=== PATIENT | male | born 1955 | race Caucasian/White ===

== ENCOUNTER 2020-01-09 16:18 | Inpatient (IN) | payer MEDICARE ==
[2020-01-09] MEDS ORDERED: Metoclopramide IV* 5 MG/ML 2 ML VIAL IV ONE (16:20)
--- NOTE | 2020-01-09 16:28 | ED ---
Head Injury - HPI Summary HPI Summary: This patient is a 64 year old M brought to [facility] by EMS with a chief complaint of head pain since today 01/09/20. Symptoms aggravated by nothing. Symptoms alleviated by nothing. 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 Pt reports head pain, abdominal pain, nauseous, no weakness in body, and not on blood thinners. Pt does not know what month but knows the year. Medications reviewed. Allergies noted. - History Of Current Complaint Stated Complaint: HEAD INJURY PER EMS Time Seen by Provider: 01/09/20 16:19 Hx Obtained From: Patient, EMS Onset/Duration: Started Minutes Ago, Started Hours Ago, Still Present Aggravating Factor(s): Other: - nothing Alleviating Factor(s): Other: - nothing Associated Signs And Symptoms: Nausea, Other: - significant laceration, head pain, loss of consciousness, nausea , dry heaving, abdominal pain, no weakness in body - Allergies/Home Medications Allergies/Adverse Reactions: Allergies Allergy/AdvReac Type Severity Reaction Status Date / Time No Known Allergies Allergy Verified 05/30/13 08:56 Home Medications: Home Medications Omeprazole 20 mg PO DAILY 01/09/20 [History Confirmed 01/09/20] Venlafaxine EXT RELEASE CAP* [Effexor Xr CAP*] 75 mg PO DAILY 01/09/20 [History Confirmed 01/09/20] cloNIDine TAB* [Catapres 0.1 MG TAB*] 0.1 mg PO DAILY 01/09/20 [History Confirmed 01/09/20] PMH/Surg Hx/FS Hx/Imm Hx Psychiatric History: Denies: Hx Eating Disorder, Hx of Violent Episodes Against Others - Cancer History Cancer Type, Location and Year: Basal cell carcinoma Rt ear - Social History Substance Use Type: Reports: None Review of Systems Positive: Other - no weakness in body Positive: Abdominal Pain, Nausea, Other - dry heaving Positive: Other - laceration to head Neurological: Other - head pain, Positive: Syncope - loss of consciousness All Other Systems Reviewed And Are Negative: Yes Physical Exam - Summary Physical Exam Summary: Constitutional: Well-developed, Well-nourished, Alert. (-) Distressed Skin: 10 cm laceration to right forehead HENT: Normocephalic; Atraumatic Eyes: Conjunctiva normal Neck: Musculoskeletal ROM normal neck. (-) JVD, (-) Stridor, (-) Tracheal deviation Cardio: Rhythm regular, rate normal, Heart sounds normal; Intact distal pulses; Radial pulses are 2+ and symmetric. (-) Murmur Pulmonary/Chest wall: Effort normal. (-) Respiratory distress, (-) Wheezes, (-) Rales Abd: Soft, (-) tenderness, (-) Distension, (-) Guarding, (-) Rebound Musculoskeletal: (-) Edema Lymph: (-) Cervical adenopathy Neuro: actively retching, not answering most questions due to retching, no obvious neurological deficits on exam but not following exams due to retching Psych: Mood and affect Normal Triage Information Reviewed: Yes Vital Signs Reviewed: Yes Procedures - Sedation Patient Received Moderate/Deep Sedation with Procedure: No - Laceration/Wound Repair 1 Location: head Description: Linear Anesthesia: Local, 1.0% - 10 mL Length, Depth and Shape: 10 cm, gaping, with irregularity at the medial edge Betadine Prep?: No Irrigated w/ Saline (ccs): 500 Laceration/Wound Explored: clean Closure: Multilayer - two 4-0 vicryl and 11 5-0 nylon sutures placed in simple interrupted Suture Type: Nylon, Vicryl Number of Sutures: 13 - 11 5-0 nylon and two 4-0 vicryl deep Layer Closure?: Yes 2 Location: head Diagnostics - Laboratory Result Diagrams: 01/10/20 04:40 01/10/20 08:15 Lab Statement: Any lab studies that have been ordered have been reviewed, and results considered in the medical decision making process. - CT Thoracic Spine CT CT Interpretation Completed By: Radiologist Summary of CT Findings: Per radiologist,. 1. No thoracic spine traumatic abnormalities. 2. Mild multilevel thoracic spondylopathy. ED physician has reviewed this imaging report. Lumbar Spine CT CT Interpretation Completed By: Radiologist Summary of CT Findings: Per radiologist,. 1. No lumbar spine traumatic abnormalities. 2. Mild multilevel lumbar spondylopathy. ED physician has reviewed this imaging report. Head CTA CT Interpretation Completed By: Radiologist Summary of CT Findings: Per radiologist,. 1. Stable left parietal posttraumatic intraparenchymal hemorrhages. No new CAYUGA. intra-or extra- axial hemorrhage. 2. Normal head CTA. ED physician has reviewed this imaging report. Cervical Spine CT CT Interpretation Completed By: Radiologist Summary of CT Findings: Per radiologist,. 1. STRAIGHTENING OF THE CERVICAL SPINE, NO EVIDENCE FOR FRACTURE. 2. MILD TO MODERATE CERVICAL SPONDYLOSIS DESCRIBED. ED physician has reviewed this imaging report. Brain CT CT Interpretation Completed By: Radiologist Summary of CT Findings: Per radiologist,. SMALL TO MODERATE SIZE AREAS OF INTRACRANIAL HEMORRHAGE PRESENT IN THE LEFT. POSTERIOR FRONTAL AND PARIETAL REGION DESCRIBED WITHOUT EVIDENCE FOR MASS EFFECT. ED physician has reviewed this imaging report. Re-Evaluation - Re-Evaluation First Eval Re-Evaluation Time: 19:30 Comment: talking better, mild headache, no vomiting Head Injury Course/Dx Course Of Treatment: Patient is here with atraumatic head injury. Patient was retching and slightly altered upon arrival so a stat CT head was performed which showed a small intraparenchymal hemorrhage. Neurosurgery was called and they wanted patient started on a nicardipine drip for hypertension and Keppra. They evaluated her rash which her with a CTA and was comfortable admitting the patient after that was negative. Patient had his laceration repaired. Patient is admitted to the ICU - Diagnoses Provider Diagnoses: Laceration - Physician Notifications Discussed Care Of Patient With: Thao De Souza - neurosurgery Time Discussed With Above Provider: 16:33 Instructed by Provider To: Other - start nicardipine drip and put him on keppra and he will look at the images; Jo 1727 call hospitalist; Jo 2012 comfortable taking patient after looking at MRI; A [facility] accepts patient for admission - Critical Care Time Critical Care Time: 30-74 min - 60 min Discharge ED - Sign-Out/Discharge Documenting (check all that apply): Patient Departure - admit - Discharge Plan Condition: Stable Disposition: ADMITTED TO [facility] - Billing Disposition and Condition Condition: STABLE Disposition: Admitted to [facility] - Attestation Statements Document Initiated by Scribe: Yes Documenting Scribe: Priya Grimaldo Provider For Whom Scribe is Documenting (Include Credential): Dr. Easton Godinez MD Scribe Attestation: Priya Martínez, scribed for Dr. Easton Godinez MD on 01/12/20 at 0741. Scribe Documentation Reviewed: Yes Provider Attestation: The documentation as recorded by the scribe, Priya Grimaldo accurately reflects the service I personally performed and the decisions made by me, Dr. Easton Godinez MD Status of Scribe Document: Viewed
[2020-01-09 16:32] LABS: ABS Monocytes 0.5 10^3/ul (0-0.8); ABS Neutrophils 3.6 10^3/ul (1.5-7.7); Eosinophil % 0.6 %; Hematocrit 37 % (42-52); Hemoglobin 12.4 g/dL (14.0-18.0); Lymphocyte % 41.8 %; Mean Corpuscular HGB Conc 34 g/dL (31-36); Mean Corpuscular Hemoglobin 31 pg (27-31); Mean Corpuscular Volume 94 fL (80-94); Mean Platelet Volume 7.6 fL (7.4-10.4); Platelet Count 313 10^3/uL (150-450); Red Blood Count 3.93 10^6 /uL (4.18-5.48); Red Cell Distribution Width 15 % (10-15); White Blood Count 7.2 10^3/uL (3.5-10.8)
[2020-01-09] MEDS ORDERED: levETIRAcetam 1000MG IVPREMIX* 1,000 MG/100 ML BAG IVPB ONE (16:34)
[2020-01-09 16:42] LABS: INR 1.08 (0.82-1.09)
[2020-01-09 16:48] LABS: Albumin 4.5 g/dL (3.2-5.2); Albumin/Globulin Ratio 1.5 (1-3); BUN/Creatinine Ratio 21.4 (8-20); Calcium 9.5 mg/dL (8.6-10.3); EGFR African American 75.5 (>60); EGFR Non-African American 62.4 (>60); Total Bilirubin 0.5 mg/dL (0.2-1.0); Total Protein 7.5 g/dL (6.4-8.9)
[2020-01-09] MEDS ORDERED: niCARdipine IV* 25 MG in NS 0.9% 250 ML* 240 ML IVPB SCH (17:00)
[2020-01-09] MEDS ORDERED: KCL 20 MEQ/100 ML IVPREMIX* 20 MEQ/100 ML BAG IV ONE (17:07)
[2020-01-09] MEDS ORDERED: Iohexol 350* (CONTRAST) 500 ML MDV IV ONE (17:42)
[2020-01-09] MEDS ORDERED: Lidocaine 1% MPF ** 5 ML VIAL INJ ONE (19:38)
[2020-01-09 21:05] LABS: Magnesium 1.9 mg/dL (1.9-2.7)
[2020-01-09] MEDS ORDERED: NS 0.9% 1000 ML** 1,000 ML IV SCH (21:30)
--- NOTE | 2020-01-09 23:51 | CONS ---
AMENDED REPORT NOW INCLUDES DATE OF CONSULT CONSULTATION NOTE: DATE OF CONSULT: 01/09/20 HISTORY OF PRESENT ILLNESS: The patient is a very pleasant 64-year-old gentleman who was brought to the emergency room by EMS with complaints of head pain. The patient was reported that he had sustained a closed head injury. 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 The patient had loss of consciousness. He denies any seizures, but he does have nausea and he vomited in the emergency room. The patient admits that he has weakness on the right upper and lower extremity. He denies numbness or tingling. He reports that he had no urinary or GI incontinence. He denies any neck or back pain. The patient is retired. 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 He is single. He has one child. He is accommodated by his brother. The patient was in the emergency room at the request of emergency room team because of CT scan findings consistent with left frontal intracranial hemorrhage. PAST MEDICAL HISTORY: Negative. PAST SURGICAL HISTORY: Hernia repair, skin lesion resection. MEDICATIONS: Not available. ALLERGIES: No known drug allergies. FAMILY HISTORY: Negative for aneurysm or arteriovenous malformations or cavernomas. SOCIAL HISTORY: Tobacco negative, alcohol negative. The patient is a former, recovering alcoholic. Recreational drug use negative. PHYSICAL EXAM: The patient is in no acute distress. He does have laceration covered with bandage in his head. He is awake, alert, oriented x3. His pupils are equal and reactive. Cranial nerves II through XII are grossly intact with the exception of right eye strabismus. 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 Motor 5/5 on the left side, 3 to 4-/5 on the right side 0-1 Rt distal LE. The patient has pronator drift positive on the right. Sensory grossly intact to light touch. Deep tendon reflexes +1 bilaterally. No clonus , no Babinski. Wallis's negative. Straight leg test negative in the supine position. The patient has no tenderness to palpation in the cervical, thoracic or lumbar spine. He has free range of motion of the cervical spine. He does have difficulty elevating his right upper extremity above the shoulder level with some complaint of shoulder pain on the right. DIAGNOSTIC STUDIES/LAB DATA: Images: The patient had a CT scan of the brain revealing large left frontal/parietal intracranial hemorrhage with 2 satellite smaller intracranial hemorrhages. He had CT scan of the cervical spine that did not reveal any evidence of fracture or subluxation. ASSESSMENT: The patient is a very pleasant 64-year-old gentleman with a reported closed head injury with large left frontal intracranial hemorrhage. PLAN: The patient at this point has significant right hemiparesis. Discussed in extent with the patient and his brother regarding his medical condition and the CT scan findings. The patient denies any history of headache or other symptoms prior to the injury. Based on the patient's history, CT scan findings may represent traumatic brain injury, although because of the location of the hemorrhage, I contacted Dr. Mendez in the [facility], who recommended a CTA of the head and neck. If the CTA findings are suspicious, then the patient should be transferred to [facility]. It will be the best option in order to obtain a formal angiogram. We discussed with the patient and his brother regarding further treatment options including admission to our hospital and monitoring the ICU with serial imaging. We will also recommend a Cuervo J collar for now and an MRI of the brain and the cervical spine in order to exclude any other injury, and also obtain thoracic and lumbar spine x-rays. We also discussed with the patient's brother regarding other treatment options such as transfer to a higher trauma facility and the patient's brother will discuss this with the family and decide on that if they would desire. In the meantime, we recommend seizure prophylaxis for 7 days. Obtain labs in order to exclude any coagulopathies and also monitor his blood pressure control and try to keep a goal of systolic blood pressure less than 140. Full instructions given to the patient and his brother. Thank you for allowing us to participate in the care of this patient. Please do not to hesitate to contact our office in case you have any further questions or concerns regarding the care of this patient. [id number]/[facility]PS #: [id number] PAULA
--- NOTE | 2020-01-10 00:48 | HP ---
ADMISSION HISTORY AND PHYSICAL: DATE OF ADMISSION: 01/09/20 PRIMARY CARE PHYSICIAN: Dr. Ginny Gamboa. PROVIDER: Ashley Gilman NP. ATTENDING PHYSICIAN: Dr. Goldy Jensen * (DICTATED BY ASHLEY GILMAN NP) OTHER PROVIDER: Dr. De Souza. CHIEF COMPLAINT: Head trauma. HISTORY OF PRESENT ILLNESS: This is a 64-year-old male with a past medical history significant for psoriasis, GERD and depression, who came to the emergency room on 01/09/20 after being hit in the head with a wooden baseball mound. 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 The mound originally became dislodged because a ball had been bounced off of it. He immediately lost consciousness and then upon wakening, he had nausea without vomiting, confusion, feeling restless, he was lethargic, at which he was transported to the emergency room. In the ED, he had a CT of his brain without contrast as well as CT of his thoracic, lumbar and cervical spine. Labs were drawn and Dr. De Souza was consulted due to the head CTA having no significant findings. It was not felt that this patient needs to be transferred to a trauma center and instead to continue treatment here in the ICU with MRIs ordered and a follow up CTA in a.m. Hospitalists were asked to evaluate the patient for admission. PAST MEDICAL HISTORY: Psoriasis, history of alcohol dependence and substance abuse, basal cell cancer, depression, GERD, and a history of rib fracture. PAST SURGICAL HISTORY: He had basal cell carcinoma removal on his chin. MEDICATIONS: 1. Clonidine 0.1 mg p.o. daily. 2. Venlafaxine 75 mg p.o. daily. 3. Omeprazole 20 mg p.o. daily. 4. Triamcinolone 0.1% 1 application daily. ALLERGIES: No known drug allergies. FAMILY HISTORY: His father had stomach and esophageal cancer and there is a strong history of coagulopathy in his family as well as substance abuse. SOCIAL HISTORY: Denies any alcohol, tobacco or recreational substance use. 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 He is and has 1 son. His brother was at bedside. REVIEW OF SYSTEMS: A 12-point system review was performed and all pertinent positives are in the HPI. Pertinent negatives include no fevers, chills, anorexia, chest pain, shortness of breath, coughing, abdominal pain, gross hematuria or issues moving his bowels or bladder, no visual complaints or dysphagia. PHYSICAL EXAMINATION GENERAL: This is a well-developed gentleman, seen lying in the stretcher with Nenana J collar on and mild distress. VITAL SIGNS: 98.2 Fahrenheit, 64 pulse, 18 respirations, 96% oxygen on room air and 112/96 blood pressure. HEENT: Conjunctivae pink and moist. PERRLA. EOMs intact. Arcus senilis noted in bilateral irises. Mucous membranes were dry. Oropharynx is clear. NECK: Unable to assess due to Nenana J collar in place. RESPIRATORY: Lung sounds clear throughout bilaterally on room air with no accessory muscle use noted. CARDIAC: S1 and S2 present, heart rate regular. No murmurs, gallops, or rubs appreciated. ABDOMEN: Soft, nontender, nondistended with positive bowel sounds x4. MUSCULOSKELETAL: No clubbing or cyanosis of the digits. Limited range of motion to the right leg and right arm. NEURO: He has right arm and leg drift. No sensation to the bottom of right foot or toes with limited sensation to the top of the right foot. Sensation intact to all other areas of the skin. Hand grasps are equal. No nasolabial flattening, tongue deviation or facial drooping noted. Letart score was 15. SKIN: He has diffuse psoriatic rashes to abdomen and bilateral arms and legs. No other open areas appreciated. PSYCH: He is alert and oriented x3. Thought content organized. PERTINENT LABORATORY DATA: RBC 3.93, hemoglobin 12.4, hematocrit 37, INR 1.08 , potassium 3.0, carbon dioxide 20, anion gap 13, BUN 25, BUN and creatinine ratio 21.4, glucose 138, hemoglobin A1c was 5.3. DIAGNOSTIC STUDIES: CT of the lumbar spine showed no lumbar spine traumatic abnormalities and mild multilevel lumbar spondylopathy. CT of thoracic spine showed no thoracic spine traumatic abnormalities and mild multilevel thoracic spondylopathy. Head and neck CTA showed minimally atherosclerotic and non-stenotic right common artery, otherwise normal neck CTA. It also showed stable left parietal posttraumatic intraparenchymal hemorrhage with no new intra or extraaxial hemorrhage and normal head CTA. CT of cervical spine showed straightening of the cervical spine with no evidence of fracture and mild to moderate cervical spondylosis. Brain CTA without contrast showed small to moderate size areas of intracranial hemorrhage present in the left posterior frontal and parietal region as described without evidence of mass effect. ASSESSMENT: My impression is that this is a 64-year-old male with a past medical history significant for psoriasis, depression, and gastroesophageal reflux disease who was admitted on 01/09/20 for traumatic cerebral hemorrhage. PLAN: 1. Traumatic cerebral hemorrhage. Neuro checks are to be q.2 hours. There is known deficit in the right side of his body. No visual or facial deficits. Head of bed is to be greater than 30 degrees. Keppra loading dose was received in the emergency room. He is to receive Keppra q.12. He declined a Monzon catheter and was able to pass urine in the emergency room without any difficulty. Dr. De Souza has been consulted. We are awaiting MRI of the brain and cervical spine. Tomorrow around midday, he will have a follow up CT of his brain without contrast to evaluate for subsequent worsening bleeding. He will be kept n.p.o. with normal saline at 75 mL per hour to keep him hydrated in case he develops a worsening bleed and requires surgical intervention. He is to wear Nenana J collar on at all times. 2. Gastroesophageal reflux disease. He is having no signs or symptoms of indigestion at this time. May continue omeprazole. 3. Depression. Continue venlafaxine. 4. Psoriasis. He may continue his triamcinolone. 5. DVT prophylaxis: SCDs are ordered. Anticoagulations at this time is contraindicated. 6. Code status: Full code. DISPOSITION: To admit inpatient to the ICU. CONDITION: Critical. TIME SPENT: Time spent on the patient is about 70 minutes with 30 of that spent face to face. ASHLEY GILMAN, DESHAWN [id number]/[facility] #: [id number] MTDRachana
[2020-01-10] MEDS: levETIRAcetam 1000MG IVPREMIX* 1,000 MG/100 ML BAG IVPB SCH ×2 (04:34→16:39)
[2020-01-10 04:46] LABS: ABS Lymphocytes 1.1 10^3/ul (1.0-4.8); ABS Monocytes 0.5 10^3/ul (0-0.8); ABS Neutrophils 5.8 10^3/ul (1.5-7.7); Eosinophil % 0.4 %; Hematocrit 34 % (42-52); Hemoglobin 11.6 g/dL (14.0-18.0); Lymphocyte % 14.5 %; Mean Corpuscular HGB Conc 34 g/dL (31-36); Mean Corpuscular Hemoglobin 32 pg (27-31); Mean Corpuscular Volume 96 fL (80-94); Mean Platelet Volume 7.9 fL (7.4-10.4); Platelet Count 271 10^3/uL (150-450); Red Blood Count 3.59 10^6 /uL (4.18-5.48); Red Cell Distribution Width 15 % (10-15); White Blood Count 7.5 10^3/uL (3.5-10.8)
[2020-01-10 05:03] LABS: BUN/Creatinine Ratio 16.2 (8-20); Blood Urea Nitrogen 16 mg/dL (6-24); CO2 Carbon Dioxide 23 mmol/L (22-32); Calcium 8.8 mg/dL (8.6-10.3); Chloride 107 mmol/L (101-111); EGFR African American 91.5 (>60); EGFR Non-African American 75.6 (>60); Glucose 90 mg/dL (70-100); Sodium 138 mmol/L (135-145)
[2020-01-10 05:11] LABS: Anion Gap 8 mmol/L (2-11)
--- NOTE | 2020-01-10 12:13 | PN ---
Progress Note - Progress Note Date of Service: 01/10/20 Note: Progress Note -- Critical Care 24 hour events/significant events: - Patient admitted yesterday after a wooden baseball mound fell onto his head at the [employer] He immediately lost consciousness, woke with nausea, confusion and right sided weakness - CTH showed small left posterior frontal ICH and smaller left parietal ICH with some mild surrounding edema - Rpt CTH due @ 12pm today - Patient complains only of right sided heaviness and slight headache ROS: negative except for pertinent positives mentioned above Tele: sinus crista Vitals: Vital Signs 01/09/20 01/09/20 01/09/20 16:21 16:33 16:34 Temperature 98.2 F Pulse Rate 76 73 71 Respiratory 16 29 18 Rate Blood Pressure 150/84 158/82 (mmHg) O2 Sat by Pulse 100 98 99 Oximetry 01/09/20 01/09/20 01/09/20 16:56 17:00 17:11 Temperature Pulse Rate Respiratory 19 26 35 Rate Blood Pressure 129/86 137/78 (mmHg) O2 Sat by Pulse Oximetry 01/09/20 01/09/20 01/09/20 17:26 17:41 17:56 Temperature Pulse Rate 70 63 Respiratory 21 27 17 Rate Blood Pressure 152/84 147/77 138/79 (mmHg) O2 Sat by Pulse 99 98 Oximetry 01/09/20 01/09/20 01/09/20 18:00 18:11 18:26 Temperature Pulse Rate 62 62 67 Respiratory 13 20 22 Rate Blood Pressure 146/81 147/76 (mmHg) O2 Sat by Pulse 99 99 Oximetry 01/09/20 01/09/20 01/09/20 19:02 19:11 19:17 Temperature Pulse Rate 65 65 66 Respiratory 11 19 17 Rate Blood Pressure 150/87 155/75 (mmHg) O2 Sat by Pulse 98 98 98 Oximetry 01/09/20 01/09/20 01/09/20 19:21 19:26 19:32 Temperature Pulse Rate 66 62 66 Respiratory 14 26 13 Rate Blood Pressure 136/85 144/83 140/81 (mmHg) O2 Sat by Pulse 100 95 100 Oximetry 01/09/20 01/09/20 01/09/20 19:37 19:52 20:01 Temperature Pulse Rate 59 Respiratory 17 22 20 Rate Blood Pressure 147/80 149/83 (mmHg) O2 Sat by Pulse 96 Oximetry 01/09/20 01/09/20 01/09/20 20:07 20:22 20:37 Temperature Pulse Rate Respiratory 14 16 18 Rate Blood Pressure 130/69 139/78 130/80 (mmHg) O2 Sat by Pulse Oximetry 01/09/20 01/09/20 01/09/20 20:39 20:52 21:01 Temperature Pulse Rate Respiratory 13 21 22 Rate Blood Pressure 121/78 133/72 (mmHg) O2 Sat by Pulse Oximetry 01/09/20 01/09/20 01/09/20 21:07 21:22 21:37 Temperature Pulse Rate Respiratory 20 18 15 Rate Blood Pressure 121/71 112/96 132/78 (mmHg) O2 Sat by Pulse Oximetry 01/09/20 01/09/20 01/09/20 21:52 22:00 22:07 Temperature Pulse Rate Respiratory 17 16 15 Rate Blood Pressure 139/80 135/76 (mmHg) O2 Sat by Pulse Oximetry 01/09/20 01/09/20 01/09/20 22:13 22:25 22:35 Temperature 98.0 F 98.8 F Pulse Rate 78 62 60 Respiratory 18 19 22 Rate Blood Pressure 142/85 137/79 129/79 (mmHg) O2 Sat by Pulse 98 95 94 Oximetry 01/09/20 01/09/20 01/09/20 22:45 23:00 23:15 Temperature Pulse Rate 63 62 68 Respiratory 19 23 16 Rate Blood Pressure 135/79 137/79 115/87 (mmHg) O2 Sat by Pulse 95 96 97 Oximetry 01/09/20 01/09/20 01/09/20 23:23 23:30 23:45 Temperature 98.8 F Pulse Rate 62 58 Respiratory 23 16 Rate Blood Pressure 140/83 142/81 (mmHg) O2 Sat by Pulse 95 94 Oximetry 01/10/20 01/10/20 01/10/20 00:00 00:15 00:18 Temperature Pulse Rate 59 65 60 Respiratory 15 21 21 Rate Blood Pressure 130/78 130/83 (mmHg) O2 Sat by Pulse 95 94 94 Oximetry 01/10/20 01/10/20 01/10/20 00:30 00:45 01:00 Temperature Pulse Rate 63 70 Respiratory 17 16 18 Rate Blood Pressure 138/82 135/78 (mmHg) O2 Sat by Pulse 94 96 Oximetry 0201/10/20 01/10/20 01:20 02:00 02:11 Temperature 98.6 F Pulse Rate 64 Respiratory 15 21 Rate Blood Pressure (mmHg) O2 Sat by Pulse 96 Oximetry 01/10/20 01/10/20 01/10/20 02:12 02:15 02:30 Temperature Pulse Rate 57 60 58 Respiratory 18 15 16 Rate Blood Pressure 138/84 136/79 137/81 (mmHg) O2 Sat by Pulse 95 93 96 Oximetry 01/10/20 01/10/20 01/10/20 02:45 03:00 03:15 Temperature Pulse Rate 54 57 57 Respiratory 19 14 18 Rate Blood Pressure 134/82 137/78 137/78 (mmHg) O2 Sat by Pulse 96 98 97 Oximetry 01/10/20 01/10/20 01/10/20 03:30 03:45 04:00 Temperature 98.8 F Pulse Rate 57 57 57 Respiratory 23 18 15 Rate Blood Pressure 135/78 135/79 140/77 (mmHg) O2 Sat by Pulse 97 96 95 Oximetry 01/10/20 01/10/20 01/10/20 04:15 04:31 04:45 Temperature Pulse Rate 61 71 59 Respiratory 22 23 16 Rate Blood Pressure 134/78 141/89 137/79 (mmHg) O2 Sat by Pulse 96 99 95 Oximetry 01/10/20 01/10/20 01/10/20 05:00 05:01 05:15 Temperature 98.9 F Pulse Rate 62 60 58 Respiratory 16 16 15 Rate Blood Pressure 140/83 134/86 (mmHg) O2 Sat by Pulse 95 97 95 Oximetry 01/10/20 01/10/20 01/10/20 05:30 05:45 06:00 Temperature Pulse Rate 59 58 57 Respiratory 15 15 15 Rate Blood Pressure 141/85 130/86 145/89 (mmHg) O2 Sat by Pulse 96 96 95 Oximetry 01/10/20 01/10/20 01/10/20 06:15 06:30 06:45 Temperature Pulse Rate 57 58 57 Respiratory 16 18 13 Rate Blood Pressure 138/83 127/83 137/81 (mmHg) O2 Sat by Pulse 96 96 95 Oximetry 01/10/20 01/10/20 01/10/20 07:00 07:15 07:30 Temperature Pulse Rate 70 69 57 Respiratory 15 18 15 Rate Blood Pressure 120/97 143/79 138/85 (mmHg) O2 Sat by Pulse 96 97 96 Oximetry 01/10/20 01/10/20 01/10/20 07:45 08:00 08:15 Temperature Pulse Rate 57 71 57 Respiratory 17 21 18 Rate Blood Pressure 138/86 148/90 134/81 (mmHg) O2 Sat by Pulse 96 97 93 Oximetry 01/10/20 01/10/20 01/10/20 08:30 08:45 09:00 Temperature Pulse Rate 58 57 59 Respiratory 13 15 15 Rate Blood Pressure 138/79 132/75 138/76 (mmHg) O2 Sat by Pulse 94 96 96 Oximetry 01/10/20 01/10/20 01/10/20 09:15 09:30 09:45 Temperature Pulse Rate 57 57 55 Respiratory 15 16 15 Rate Blood Pressure 137/76 130/73 125/74 (mmHg) O2 Sat by Pulse 96 96 97 Oximetry 01/10/20 01/10/20 10:00 10:15 Temperature Pulse Rate 69 72 Respiratory 15 21 Rate Blood Pressure 134/83 135/83 (mmHg) O2 Sat by Pulse 96 97 Oximetry Intake and Output Last 24 Hours 01/08/20 01/09/20 01/10/20 01/11/20 06:59 06:59 06:59 06:59 Intake Total 589 Output Total 400 400 Balance 189 -400 Weight 189 lb 6.033 oz Intake: IV Fluids 100 Keppra 100 IVPB 489 NS (0.9%) 489 Oral 0 Output: Urine 400 400 Other: # Voids 0 O2: RA Infusions: NS @ 75 Medications: Acetaminophen (Tylenol Tab*) 650 mg PO Q4H PRN PRN Reason: MILD PAIN or TEMP > 100.4 Sodium Chloride (Ns 0.9% 1000 Ml) 1,000 mls @ 75 mls/hr IV PER RATE RONI Levetiracetam (Keppra Iv Premix*) 1,000 mg in 100 mls @ 400 mls/hr IVPB Q12H RONI Last Admin: 01/10/20 04:34 Dose: 400 mls/hr Ondansetron HCl (Zofran Inj*) 4 mg IV Q4H PRN PRN Reason: NAUSEA/VOMITING Physical Exam: Constitutional: awake, alert, no distress, no diaphoresis, c/o being fatigued Head: normocephalic, dried blood to top of head, rebeca intact. Eyes: no pallor, no icterus ENT: moist mucous membranes Neck: soft, supple, c-collar in place CVS: crista, regular, no murmur Chest/Resp: bilateral air entry, no rhales, no wheeze, no rhonchi, no acc muscle use Abdomen/GI: soft, nontender, nondistended, BS+ Ext/Msk: warm, pulses+, no edema Skin: intact, warm Neuro: awake, alert, orientedx3, follows all commands. PERRL 4mm, EOMI, no nystagmus. BUE past pointing with finger to nose. Strength 5/5 RUE and RLE, strength 4/5 LUE and LLE Psych: normal affect Labs: Laboratory Results - last 24 hr 01/09/20 01/09/20 01/09/20 16:24 16:24 16:24 WBC 7.2 RBC 3.93 L Hgb 12.4 L Hct 37 L MCV 94 MCH 31 MCHC 34 RDW 15 Plt Count 313 MPV 7.6 Neut % (Auto) 49.5 Lymph % (Auto) 41.8 [place] % (Auto) 7.4 Eos % (Auto) 0.6 Baso % (Auto) 0.7 Absolute Neuts (auto) 3.6 Absolute Lymphs (auto) 3.0 Absolute Monos (auto) 0.5 Absolute Eos (auto) 0.0 Absolute Basos (auto) 0.0 Absolute Nucleated RBC 0.0 Nucleated RBC % 0.0 INR (Anticoag Therapy) 1.08 Sodium 137 Potassium 3.0 L Chloride 104 Carbon Dioxide 20 L Anion Gap 13 H BUN 25 H Creatinine 1.17 Est GFR ( Amer) 75.5 Est GFR (Non-Af Amer) 62.4 BUN/Creatinine Ratio 21.4 H Glucose 138 H Hemoglobin A1c Calcium 9.5 Magnesium 1.9 Total Bilirubin 0.50 AST 19 ALT 23 Alkaline Phosphatase 52 Total Protein 7.5 Albumin 4.5 Globulin 3.0 Albumin/Globulin Ratio 1.5 01/09/20 01/10/20 01/10/20 16:24 04:40 04:40 WBC 7.5 RBC 3.59 L Hgb 11.6 L Hct 34 L MCV 96 H MCH 32 H MCHC 34 RDW 15 Plt Count 271 MPV 7.9 Neut % (Auto) 77.6 Lymph % (Auto) 14.5 [place] % (Auto) 6.8 Eos % (Auto) 0.4 Baso % (Auto) 0.7 Absolute Neuts (auto) 5.8 Absolute Lymphs (auto) 1.1 Absolute Monos (auto) 0.5 Absolute Eos (auto) 0.0 Absolute Basos (auto) 0.0 Absolute Nucleated RBC 0.0 Nucleated RBC % 0.0 INR (Anticoag Therapy) Sodium 138 Potassium TNP Chloride 107 Carbon Dioxide 23 Anion Gap 8 BUN 16 Creatinine 0.99 Est GFR ( Amer) 91.5 Est GFR (Non-Af Amer) 75.6 BUN/Creatinine Ratio 16.2 Glucose 90 Hemoglobin A1c 5.3 Calcium 8.8 Magnesium Total Bilirubin AST ALT Alkaline Phosphatase Total Protein Albumin Globulin Albumin/Globulin Ratio 01/10/20 08:15 WBC RBC Hgb Hct MCV MCH MCHC RDW Plt Count MPV Neut % (Auto) Lymph % (Auto) [place] % (Auto) Eos % (Auto) Baso % (Auto) Absolute Neuts (auto) Absolute Lymphs (auto) Absolute Monos (auto) Absolute Eos (auto) Absolute Basos (auto) Absolute Nucleated RBC Nucleated RBC % INR (Anticoag Therapy) Sodium Potassium 3.8 Chloride Carbon Dioxide Anion Gap BUN Creatinine Est GFR ( Amer) Est GFR (Non-Af Amer) BUN/Creatinine Ratio Glucose Hemoglobin A1c Calcium Magnesium Total Bilirubin AST ALT Alkaline Phosphatase Total Protein Albumin Globulin Albumin/Globulin Ratio Imaging: MRI cervical spine: subtle possible cord compression C4-C5, possible chronic myelopathy, mild multilevel cervical spondylopathy causing mild canal stenosis at C4-C5, possible compression of left C4 nerve root MRI brain: stable left parietal ICH CT lumbar and thoracic spine: mild multilevel thoracic spondylopathy CTA negative, all vessels open CT cervical spine: mild to mod cervical spondylosis CT 01/09: 2 small left posterior frontal and parietal ICH without evidence of mass effect per radiology report Assessment: 64M with known medical history GERD, depression, basal cell carcinoma, presents on 01/09 after experiencing a traumatic left posterior frontal and parietal ICH. He was at the [employer] when a wooden baseball mound fell on his head from 6[place] above. He lost consciousness and woke with confusion, nausea, and right sided weakness. - Traumatic small left posterior frontal and parietal ICH Plan: Neuro- - Traumatic left ICH: acute. Continue neuro checks q1hr. Rpt CTH at 12pm and then if no surgery, patient should be able to start a diet - Neurosurgery to clear c-spine when appropriate - Continues to have mild right sided weakness which is starting to improve - restart antidepressants tomorrow -Delirium prec; avoid BDZ CVS- - No active issues - BP WNL -Maintain MAP>65 Resp- -No active issues - On RA - Aspiration prec, Pulmonary Toilet. IS ID- - No active issues - Goal temp<38.5 GI- -Nutrition: start diet when it is confirmed that patient does not need surgery -GI prophylaxis Renal- -strict I/O, replete to keep K>4, Mg>2 -griffin as indicated Heme- - No active issues Endo-Maintain BG<200, insulin protocol as needed Musculsk- pressure ulcer prophylaxis. Bedrest. Wounds- none Nutrition- NPO for now DVT prophylaxis:SCDs GI prophylaxis: omeprazole Disposition: Patient requires Critical Care/ICU for traumatic ICH, frequent neuro checks Patient clinical status: critical Code Status: full Total Critical Care time is 30 minutes
[2020-01-10] MEDS: Pantoprazole TAB * 40 MG TAB PO SCH (16:41)
--- NOTE | 2020-01-10 17:29 | PN ---
Progress Note - Progress Note Date of Service: 01/10/20 SOAP: Subjective: []No event ON. Patient in ICU. RUE weakness improved. Tolerates PO well. MJ collar Objective: []VSS, Afebrile AAOx3 MANUEL, CN II-XII grossly intact Motor 5/5 left side, RUE 4/5 mild pronator drift, 4/5 RLE except Rt foot DF, PF , EHL 0-1/5 Sensory grossly intact to light touch Assessment: []64 yom HD#1 CHI, Left F/P contusions Plan: []Monitor VS, Neurochecks. Repeat CT brain this am stable MRI brain revealed Left F/P contusions involving mostly Left frontal cortex MRI c spine: no significant evidence of ligamentous injury. Reported C4-5 subtle cord signal changes per virtual radiology report. Images of brain and C spine reviewed with Dr Dickson, who agrees with above location of brain lesions and agrees that the MRI of the c spine does not reveal any ligamentous changes. Spinal cord changes are not so evident and recommends repeat MRI of C spine with attention to GRE axial images to exclude cord trauma. If MRI negative, then we would obtain F/E XR of C spine in order to remove the MJ collar if negative. Would recommend MRI of L spine as patient has significant RLE distal weakness and hx of chronic aback pain. Repeat CT head in am. SZ prophylaxis. Monitor electrolytes, avoid hypoNa. Maintain SBP<140 Appreciate ICU care. Angie/ MD Ap
[2020-01-10] MEDS: Acetaminophen TAB* 325 MG PO PRN (21:04)
[2020-01-11] MEDS: Acetaminophen TAB* 325 MG PO PRN ×4 (01:56→21:43)
[2020-01-11] MEDS: levETIRAcetam 1000MG IVPREMIX* 1,000 MG/100 ML BAG IVPB SCH ×2 (04:15→17:33)
[2020-01-11] MEDS ORDERED: cloNIDine TAB* 0.1 MG PO SCH ×2 (09:00)
[2020-01-11] MEDS ORDERED: Diazepam TAB(*) 5 MG PO ONE (09:25)
[2020-01-11] MEDS: Pantoprazole TAB * 40 MG TAB PO SCH (09:48)
--- NOTE | 2020-01-11 14:34 | PN ---
Progress Note - Progress Note Date of Service: 01/11/20 Note: Progress Note -- Critical Care 24 hour events/significant events: - No events overnight - CTH this AM showed stable left ICH - Patient offers no complaints other than his right foot "isnt working very well " ROS: negative except for pertinent positives mentioned above Tele: sinus Vitals: Vital Signs 01/10/20 01/10/20 01/10/20 14:45 15:00 15:15 Temperature Pulse Rate 55 71 56 Respiratory 17 15 16 Rate Blood Pressure 148/83 151/92 145/83 (mmHg) O2 Sat by Pulse 97 94 96 Oximetry 01/10/20 01/10/20 01/10/20 15:30 15:45 16:00 Temperature 99.3 F Pulse Rate 61 60 58 Respiratory 16 16 14 Rate Blood Pressure 146/83 136/81 139/81 (mmHg) O2 Sat by Pulse 97 97 98 Oximetry 01/10/20 01/10/20 01/10/20 16:15 16:30 16:45 Temperature Pulse Rate 59 68 71 Respiratory 18 18 18 Rate Blood Pressure 134/77 139/85 136/89 (mmHg) O2 Sat by Pulse 97 97 96 Oximetry 01/10/20 01/10/20 01/10/20 17:00 17:15 17:30 Temperature Pulse Rate 65 57 58 Respiratory 26 16 23 Rate Blood Pressure 132/82 138/91 137/80 (mmHg) O2 Sat by Pulse 97 98 97 Oximetry 01/10/20 01/10/20 01/10/20 17:45 18:00 18:30 Temperature Pulse Rate 76 68 58 Respiratory 14 19 19 Rate Blood Pressure 143/81 138/80 148/77 (mmHg) O2 Sat by Pulse 97 96 97 Oximetry 01/10/20 01/10/20 01/10/20 19:00 19:30 20:00 Temperature Pulse Rate 58 73 64 Respiratory 17 15 19 Rate Blood Pressure 142/81 139/85 146/87 (mmHg) O2 Sat by Pulse 96 96 96 Oximetry 01/10/20 01/10/20 01/10/20 20:30 20:40 21:00 Temperature 99.6 F Pulse Rate 59 59 Respiratory 16 Rate Blood Pressure 141/88 149/79 (mmHg) O2 Sat by Pulse 97 96 Oximetry 01/10/20 01/10/20 01/10/20 21:30 22:00 22:01 Temperature Pulse Rate 63 73 Respiratory 17 17 Rate Blood Pressure 148/91 (mmHg) O2 Sat by Pulse 94 92 Oximetry 01/10/20 01/10/20 01/10/20 22:30 23:00 23:30 Temperature Pulse Rate 57 56 63 Respiratory 18 22 Rate Blood Pressure 143/88 148/86 141/82 (mmHg) O2 Sat by Pulse 95 94 95 Oximetry 01/10/20 01/11/20 01/11/20 23:35 00:00 00:30 Temperature 99.2 F Pulse Rate 64 78 61 Respiratory 17 14 Rate Blood Pressure 145/86 144/80 (mmHg) O2 Sat by Pulse 93 95 95 Oximetry 01/11/20 01/11/20 01/11/20 01:00 01:30 02:00 Temperature Pulse Rate 63 61 70 Respiratory 18 19 Rate Blood Pressure 140/95 146/83 133/85 (mmHg) O2 Sat by Pulse 95 95 95 Oximetry 01/11/20 01/11/20 01/11/20 02:31 03:00 03:01 Temperature Pulse Rate 65 62 60 Respiratory 16 16 16 Rate Blood Pressure 140/88 130/66 (mmHg) O2 Sat by Pulse 96 88 91 Oximetry 01/11/20 01/11/20 01/11/20 03:30 04:00 04:30 Temperature 99.2 F Pulse Rate 58 57 53 Respiratory 12 15 16 Rate Blood Pressure 140/78 134/81 132/84 (mmHg) O2 Sat by Pulse 93 94 94 Oximetry 01/11/20 01/11/20 01/11/20 05:00 05:30 06:00 Temperature Pulse Rate 53 59 Respiratory 17 16 17 Rate Blood Pressure 157/80 136/81 (mmHg) O2 Sat by Pulse 95 95 Oximetry 01/11/20 01/11/20 01/11/20 06:31 06:32 07:00 Temperature Pulse Rate 59 61 53 Respiratory 21 19 Rate Blood Pressure 140/79 148/86 (mmHg) O2 Sat by Pulse 95 97 100 Oximetry 01/11/20 01/11/20 01/11/20 07:14 07:30 07:46 Temperature 98.8 F Pulse Rate 54 Respiratory 16 21 Rate Blood Pressure 137/84 (mmHg) O2 Sat by Pulse 100 Oximetry 01/11/20 01/11/20 01/11/20 08:00 08:31 08:47 Temperature Pulse Rate 58 52 60 Respiratory 18 15 15 Rate Blood Pressure 133/90 131/89 (mmHg) O2 Sat by Pulse 95 99 96 Oximetry 01/11/20 01/11/20 01/11/20 09:00 09:30 09:48 Temperature Pulse Rate 63 66 Respiratory 15 17 21 Rate Blood Pressure 141/89 149/93 (mmHg) O2 Sat by Pulse 96 95 Oximetry 01/11/20 01/11/20 01/11/20 10:00 10:30 11:00 Temperature Pulse Rate 62 56 69 Respiratory 19 14 16 Rate Blood Pressure 135/79 127/76 133/78 (mmHg) O2 Sat by Pulse 96 99 95 Oximetry 01/11/20 01/11/20 01/11/20 11:30 12:00 12:30 Temperature Pulse Rate 57 56 63 Respiratory 17 20 21 Rate Blood Pressure 125/80 139/81 145/86 (mmHg) O2 Sat by Pulse 98 96 97 Oximetry Intake and Output Last 24 Hours 01/09/20 01/10/20 01/11/20 01/12/20 06:59 06:59 06:59 06:59 Intake Total 589 1842 390 Output Total 400 2400 Balance 189 -558 390 Weight 189 lb 6.033 oz 183 lb 11.2 oz 190 lb Intake: IV Fluids 100 562 Keppra 100 NS (0.9%) 562 IVPB 489 400 Keppra 400 NS (0.9%) 489 Oral 0 880 390 Output: Urine 400 2400 Other: # Voids 0 0 O2: RA Infusions: none Medications: Acetaminophen (Tylenol Tab*) 650 mg PO Q4H PRN PRN Reason: MILD PAIN or TEMP > 100.4 Last Admin: 01/11/20 12:11 Dose: 650 mg Levetiracetam (Keppra Iv Premix*) 1,000 mg in 100 mls @ 400 mls/hr IVPB Q12H [facility] Last Admin: 01/11/20 04:15 Dose: 400 mls/hr Ondansetron HCl (Zofran Inj*) 4 mg IV Q4H PRN PRN Reason: NAUSEA/VOMITING Pantoprazole Sodium (Protonix Tab*) 40 mg PO DAILY RONI Last Admin: 01/11/20 09:48 Dose: 40 mg Physical Exam: Constitutional: awake, alert, no distress, no diaphoresis, c/o being fatigued Head: normocephalic, dried blood to top of head, sutures intact. Eyes: no pallor, no icterus ENT: moist mucous membranes Neck: c-collar in place CVS: regular, S1S2, no murmur Chest/Resp: bilateral air entry, no rhales, no wheeze, no rhonchi, no acc muscle use Abdomen/GI: soft, nontender, nondistended, BS+ Ext/Msk: warm, pulses+, no edema Skin: intact, warm Neuro: awake, alert, orientedx3, follows all commands. PERRL 4mm, EOMI, no nystagmus. BUE past pointing with finger to nose. Strength 5/5 RUE and RLE, strength 4/5 LUE and LLE. Still has mild RUE drift at times. Right foot dorsi and plantar flexion are weaker than flexion at knee and hip Psych: normal affect Labs: NA Imaging: CTH 01/11: Stable left ICH MRI cervical spine: subtle possible cord compression C4-C5, possible chronic myelopathy, mild multilevel cervical spondylopathy causing mild canal stenosis at C4-C5, possible compression of left C4 nerve root MRI brain: stable left parietal ICH CT lumbar and thoracic spine: mild multilevel thoracic spondylopathy CTA negative, all vessels open CT cervical spine: mild to mod cervical spondylosis CTH 01/09: 2 small left posterior frontal and parietal ICH without evidence of mass effect per radiology report Assessment: 64M with known medical history GERD, depression, basal cell carcinoma, presents on 01/09 after experiencing a traumatic left posterior frontal and parietal ICH. He was [place] the [employer] when a wooden baseball mound fell on his head from 6feet above. He lost consciousness and woke with confusion, nausea, and right sided weakness. - Traumatic small left posterior frontal and parietal ICH - Possible cervical cord contusion Plan: Neuro- - Traumatic left ICH: acute. Continue neuro checks. Rpt CTH this AM is stable. - Neurosurgery would like to repeat MRI cervical spine to better assess this possible cord contusion. If MRI cervical spine is negative, will complete flexion/extension xrays and hopefully clear c-spine collar. Will also obtain MRI lumbar spine since patient's dorsi and plantar flexion of the right foot is significantly weaker than patient's flexion at knee and hip on the right side - Neurosurgery to clear c-spine when appropriate - Continues to have mild right sided weakness which is starting to improve - restart antidepressants tomorrow -Delirium prec; avoid BDZ CVS- - No active issues - BP WNL - Patient takes clonidine at home to help him sleep. Was considering restarting this medication for hypertension but BP has been right around goal and he is bradycardic at baseline. - If patient does require anti-hypertensive medications, would recommend an ACEI or ARB -Maintain MAP>65 as long as SBP<140 Resp- -No active issues - On RA - Aspiration prec, Pulmonary Toilet. IS ID- - No active issues - Goal temp<38.5 GI- -Nutrition: started diet -GI prophylaxis Renal- -strict I/O, replete to keep K>4, Mg>2 -voiding Heme- - No active issues Endo-Maintain BG<200, insulin protocol as needed Musculsk- pressure ulcer prophylaxis.OOB with [place] J Wounds- none Nutrition- regular diet DVT prophylaxis:SCDs GI prophylaxis: omeprazole Updated patient's girlfriend at length this morning. All questions answered. Disposition: Patient requires Critical Care/ICU for traumatic ICH and possible cervical cord contusion Patient clinical status: stable Code Status: full Total Critical Care time is 30 minutes
--- NOTE | 2020-01-11 20:33 | PN ---
Progress Note - Progress Note Date of Service: 01/11/20 SOAP: Subjective: []No events ON. Patient in ICU. RUE weakness improved. RLE weakness improving. Tolerates PO well. MJ collar Objective: []VSS, Afebrile AAOx3 MANUEL, CN II-XII grossly intact Motor 5/5 left side, RUE 4/5 mild pronator drift, 4/5 RLE except Rt foot DF, PF , EHL 2-3/5 Sensory grossly intact to light touch No tender to palpation of C/T/L spine. Free range of motion c spine. Assessment: [] 64 yom HD#2 CHI, Left F/P contusions Plan: []Monitor VS, Neurochecks. Repeat CT brain this am stable Repeat MRI c spine: no evidence of ligamentous injury. No cord contusion. MRI L spine DDD, HNP L4-5, L5-S1 TL XR no fractire CT chest no T spine fractures. SZ prophylaxis. Monitor electrolytes, avoid hypoNa. Maintain SBP<140 OOB in a chair, PT to ambulate in am if tolerated. DC planning. Appreciate ICU, IM care. Juancarlos De Souza MD
[2020-01-12] MEDS: levETIRAcetam TAB* 500 MG PO SCH ×2 (05:43→18:11)
[2020-01-12] MEDS: Acetaminophen TAB* 325 MG PO PRN ×2 (05:44→09:06)
[2020-01-12] MEDS: Pantoprazole TAB * 40 MG TAB PO SCH (08:58)
[2020-01-12] MEDS: Venlafaxine EXT RELEASE CAP* 75 MG PO SCH (08:58)
[2020-01-12] MEDS ORDERED: Lidocaine PATCH 5%* 1 PATCH TRANSDERM PRN (12:41)
--- NOTE | 2020-01-12 12:48 | PN ---
Subjective Date of Service: 01/12/20 Interval History: Patient was feeling constipated this AM and had not had a BM in 3-4 days, but had one today and is feeling relief. At time of eval, denies abd pain, n/v, headache, visual changes, weakness/numbness/tingling of extremities, chest pain , difficulty breathing. Objective Active Medications: Acetaminophen (Tylenol Tab*) 650 mg PO Q4H PRN PRN Reason: MILD PAIN or TEMP > 100.4 Last Admin: 01/12/20 09:06 Dose: 650 mg Levetiracetam (Keppra Tab*) 1,000 mg PO Q12H [facility] Last Admin: 01/12/20 05:43 Dose: 1,000 mg Lidocaine (Lidoderm 5% Patch*) 1 patch TRANSDERM DAILY PRN PRN Reason: pain - mild (back pain) Ondansetron HCl (Zofran Inj*) 4 mg IV Q4H PRN PRN Reason: NAUSEA/VOMITING Pantoprazole Sodium (Protonix Tab*) 40 mg PO DAILY [facility] Last Admin: 01/12/20 08:58 Dose: 40 mg Pharmacy Profile Note (Lidocaine Patch Remove*) 1 note N/A 2100 [facility] Venlafaxine HCl (Effexor Xr Cap*) 75 mg PO DAILY [facility] Last Admin: 01/12/20 08:58 Dose: 75 mg Vital Signs - 8 hr 01/12/20 01/12/20 01/12/20 05:00 05:03 06:10 Temperature 97.7 F Pulse Rate 73 63 54 Respiratory 16 Rate Blood Pressure 142/86 128/84 (mmHg) O2 Sat by Pulse 95 96 97 Oximetry 01/12/20 01/12/20 08:00 10:52 Temperature 97.9 F 98.1 F Pulse Rate 62 56 Respiratory 18 17 Rate Blood Pressure 128/76 143/88 (mmHg) O2 Sat by Pulse 99 99 Oximetry Oxygen Devices in Use Now: None Appearance: Elderly white male who appears stated age, sitting in chair, appearing comfortable and in NAD Eyes: No Scleral Icterus, - - PERRL; lateral deviation of right eye consistent with strabismus Ears/Nose/Mouth/Throat: Mucous Membranes Moist Neck: Trachea Midline Respiratory: Symmetrical Chest Expansion and Respiratory Effort, Clear to Auscultation Cardiovascular: NL Sounds; No Murmurs; No JVD, RRR Abdominal: - - abd soft, nontender, nondistended Extremities: No Edema Skin: No Rash or Ulcers Neurological: Alert and Oriented x 3, - - strength 3/5 with R hip flexion against resistance, 5/5 on left side; strength 5/5 with flexion/extension knees bilaterally; bilateral UEs 5/5 strength throughout; grossly symmetrical sensation to light touch, speech clear Result Diagrams: 01/12/20 13:54 01/12/20 13:54 Microbiology and Other Data: Microbiology 01/09/20 22:50 Nasal Screen MRSA (PCR) - Final Nasal Mrsa Not Detected Assess/Plan/Problems-Billing Assessment: 64 yo white male with PMHx depression, GERD presents with AMS after suffering trauma of approx 100 lb object falling on his head from approx 6ft height. - Patient Problems (1) Traumatic intracranial hemorrhage Current Visit: Yes Status: Acute Code(s): S06.309A - UNSP FOCAL TBI W LOC OF UNSP DURATION, INIT SNOMED Code(s): 715642578 Comment: -patient presented with confusion after approx 100lb baseball mound fell on his head from approx 6ft height; initially admitted to the ICU and now on medical floor -found to have left parietal ICH 1.7cm x1.3 cm; repeat imaging as been stable -no acute injury to thoracic or cervical spine on CT or MRI, though lumbar MRI is demonstrating L4-5 disc protrusion with impingement -appreciate neurosurgery consult; nonoperative management -continue seizure ppx with IV keppra BID -head lac repaired at admission 01/09/20, will need suture removal outpatient -PT/OT ordered today with PMRU referral pending (2) Protruded lumbar disc Current Visit: Yes Status: Acute Code(s): M51.26 - OTHER INTERVERTEBRAL DISC DISPLACEMENT, LUMBAR REGION SNOMED Code(s): 616595366 Comment: -demonstrated on lumbar MRI -patient is known to have chronic low back pain but this is likely acute from recent trauma -prn lidocaine patch and tylenol for pain control -appreciate NSGY consult (3) GERD (gastroesophageal reflux disease) Current Visit: Yes Status: Acute Code(s): K21.9 - GASTRO-ESOPHAGEAL REFLUX DISEASE WITHOUT ESOPHAGITIS SNOMED Code(s): 479459008 Comment: -PPI and prn tums (4) Depressed Current Visit: Yes Status: Acute Code(s): F32.9 - MAJOR DEPRESSIVE DISORDER , SINGLE EPISODE, UNSPECIFIED SNOMED Code(s): 75764529 Comment: -continue home venlafaxine (5) DVT prophylaxis Current Visit: Yes Status: Acute Code(s): Z29.9 - ENCOUNTER FOR PROPHYLACTIC MEASURES, UNSPECIFIED SNOMED Code(s): 853056344 Comment: -SCDs -chemoprophylaxis contraindicated in setting of ICH (6) Full code status Current Visit: Yes Status: Acute Code(s): Z78.9 - OTHER SPECIFIED HEALTH STATUS SNOMED Code(s): 483869918 Status and Disposition: pending inpatient rehab vs [facility]
[2020-01-12 14:06] LABS: ABS Lymphocytes 0.9 10^3/ul (1.0-4.8); ABS Monocytes 0.5 10^3/ul (0-0.8); Eosinophil % 0.5 %; Hematocrit 39 % (42-52); Lymphocyte % 11.9 %; Mean Corpuscular HGB Conc 33 g/dL (31-36); Mean Corpuscular Hemoglobin 32 pg (27-31); Mean Corpuscular Volume 95 fL (80-94); Mean Platelet Volume 7.8 fL (7.4-10.4); Platelet Count 243 10^3/uL (150-450); Red Blood Count 4.08 10^6 /uL (4.18-5.48); Red Cell Distribution Width 15 % (10-15); White Blood Count 7.5 10^3/uL (3.5-10.8)
[2020-01-12 14:23] LABS: BUN/Creatinine Ratio 17.4 (8-20); Calcium 9.2 mg/dL (8.6-10.3); EGFR African American 99.6 (>60); EGFR Non-African American 82.3 (>60); Potassium 3.5 mmol/L (3.5-5.0)
[2020-01-12] MEDS: Ondansetron INJ* 2 MG/ML VIAL IV PRN ×2 (16:01→21:19)
[2020-01-12] MEDS: Lidocaine PATCH 5%* 1 PATCH TRANSDERM PRN (16:01)
[2020-01-12] MEDS: Calcium Carbonate CHEW TAB* 500 MG (TUMS) PO PRN (18:11)
--- NOTE | 2020-01-12 21:46 | PN ---
Progress Note - Progress Note Date of Service: 01/12/20 SOAP: Subjective: []No events ON. Patient on regular floor.RLE weakness improving. Tolerates PO well. Voids. Was able to stand and take a few steps with PT and walker earlier. Able to be OOB on a chair earlier. Objective: []VSS, Afebrile AAOx3 MANUEL, CN II-XII grossly intact Motor 5/5 left side, RUE 4/5 mild pronator drift, 4/5 RLE except Rt foot DF, PF , EHL 2-3/5 Sensory grossly intact to light touch Assessment: []64 yom HD#3 CHI, Left F/P contusions Plan: [] Monitor VS, Neurochecks. SZ prophylaxis. Maintain SBP<140 PT to ambulate in am if tolerated. DC planning, potential Rehab. Appreciate IM care. Juancarlos De Souza MD
--- NOTE | 2020-01-13 02:11 | PN ---
Hospitalist Progress Note Date of Service: 01/13/20 Called for patient fall. Patient awake and alert. No new focal deficits. Fall unwitnessed will obtain ct brain and c spine, no complaints of pain at this time, moving all four extremities,
[2020-01-13] MEDS: levETIRAcetam TAB* 500 MG PO SCH ×2 (05:40→17:26)
[2020-01-13] MEDS: Lidocaine Patch REMOVE* 1 NOTE MISC SCH ×2 (05:46→21:21)
--- NOTE | 2020-01-13 09:02 | PN ---
Subjective Date of Service: 01/13/20 Interval History: Pt is feeling well. His low back is bothering him a little more today. He denies any headache. No new neurologic deficits. Pt fell last night when he tried to get out of bed to the bathroom. He states he felt a little disoriented when he got up and forgot he was in the hospital and was having a difficult time walking. Objective Active Medications: Acetaminophen (Tylenol Tab*) 650 mg PO Q4H PRN PRN Reason: MILD PAIN or TEMP > 100.4 Last Admin: 01/12/20 09:06 Dose: 650 mg Calcium Carbonate (Tums*) 500 mg PO Q4H PRN PRN Reason: INDIGESTION Last Admin: 01/12/20 18:11 Dose: 500 mg Levetiracetam (Keppra Tab*) 1,000 mg PO Q12H [facility] Last Admin: 01/13/20 05:40 Dose: 1,000 mg Lidocaine (Lidoderm 5% Patch*) 1 patch TRANSDERM DAILY PRN PRN Reason: pain - moderate (back pain) Last Admin: 01/12/20 16:01 Dose: 1 patch Ondansetron HCl (Zofran Inj*) 4 mg IV Q4H PRN PRN Reason: NAUSEA/VOMITING Last Admin: 01/12/20 16:01 Dose: 4 mg Pantoprazole Sodium (Protonix Tab*) 40 mg PO DAILY [facility] Last Admin: 01/12/20 08:58 Dose: 40 mg Pharmacy Profile Note (Lidocaine Patch Remove*) 1 note N/A 2100 [facility] Last Admin: 01/13/20 05:46 Dose: 1 note Venlafaxine HCl (Effexor Xr Cap*) 75 mg PO DAILY [facility] Last Admin: 01/12/20 08:58 Dose: 75 mg Vital Signs - 8 hr 01/13/20 01/13/20 01/13/20 02:05 02:31 03:11 Temperature 97.2 F 97.4 F 97.5 F Pulse Rate 74 58 59 Respiratory 20 16 16 Rate Blood Pressure 130/86 144/82 136/79 (mmHg) O2 Sat by Pulse 98 96 99 Oximetry 01/13/20 01/13/20 01/13/20 04:00 05:02 07:08 Temperature 99.0 F 97.8 F 97.6 F Pulse Rate 66 63 67 Respiratory 20 20 22 Rate Blood Pressure 145/81 146/88 136/75 (mmHg) O2 Sat by Pulse 98 99 94 Oximetry 01/13/20 08:00 Temperature 97.5 F Pulse Rate 66 Respiratory 10 Rate Blood Pressure 160/60 (mmHg) O2 Sat by Pulse 98 Oximetry Oxygen Devices in Use Now: None Appearance: Middle aged male sitting up in a chair, NAD Eyes: No Scleral Icterus, - - disconjugate gaze Ears/Nose/Mouth/Throat: Mucous Membranes Moist Respiratory: Symmetrical Chest Expansion and Respiratory Effort, Clear to Auscultation Cardiovascular: NL Sounds; No Murmurs; No JVD, RRR, No Edema Abdominal: NL Sounds; No Tenderness; No Distention Extremities: No Clubbing, Cyanosis Skin: No Nodules or Sclerosis, - - psoriasis plaques on back noted Neurological: Alert and Oriented x 3 Result Diagrams: 01/12/20 13:54 01/12/20 13:54 Microbiology and Other Data: Microbiology 01/09/20 22:50 Nasal Screen MRSA (PCR) - Final Nasal Mrsa Not Detected Assess/Plan/Problems-Billing Mr Garduno is a 64 yo white male with PMHx depression, GERD presented to the ER after LOC after trauma of approx 100 lb object falling on his head from approx 6ft height and was found to have small L posterior frontal and L parietal intracranial hemorrhages. - Patient Problems (1) Traumatic intracranial hemorrhage Current Visit: Yes Status: Acute Code(s): S06.309A - UNSP FOCAL TBI W LOC OF UNSP DURATION, INIT SNOMED Code(s): 946954862 Comment: The patient presented with LOC and confusion after approx 100lb baseball mound fell on his head from approx 6ft height; initially admitted to the ICU for monitoring of ICH and now on medical floor. Repeat brain imaging has been stable without worsening of the bleed. No acute injury to thoracic or cervical spine on CT or MRI, though lumbar MRI is demonstrating L4-5 disc protrusion with impingement. Per neurosurgery pt needs nonoperative management only. Continue keppra BID for seizure prophylaxis. Head laceration was repaired at admission 01/09/20, will need suture removal on 01/19/20. evals PT/OT- appears he will need STR. PMRU referral pending. (2) Protruded lumbar disc Current Visit: Yes Status: Acute Code(s): M51.26 - OTHER INTERVERTEBRAL DISC DISPLACEMENT, LUMBAR REGION SNOMED Code(s): 384898480 Comment: Continue pain control with tylenol. If that is not enough to control his pain will add low dose tramadol. (3) Depressed Current Visit: Yes Status: Acute Code(s): F32.9 - MAJOR DEPRESSIVE DISORDER , SINGLE EPISODE, UNSPECIFIED SNOMED Code(s): 36073598 Comment: Continue venlafaxine. (4) GERD (gastroesophageal reflux disease) Current Visit: Yes Status: Acute Code(s): K21.9 - GASTRO-ESOPHAGEAL REFLUX DISEASE WITHOUT ESOPHAGITIS SNOMED Code(s): 454446500 Comment: Continue PPI. (5) DVT prophylaxis Current Visit: Yes Status: Acute Code(s): Z29.9 - ENCOUNTER FOR PROPHYLACTIC MEASURES, UNSPECIFIED SNOMED Code(s): 235520225 Comment: SCDs only as chemoprophylaxis contraindicated in setting of ICH (6) Full code status Current Visit: Yes Status: Acute Code(s): Z78.9 - OTHER SPECIFIED HEALTH STATUS SNOMED Code(s): 083736590 Status and Disposition: pending inpatient rehab vs [facility]
[2020-01-13] MEDS: Pantoprazole TAB * 40 MG TAB PO SCH (09:15)
[2020-01-13] MEDS: Venlafaxine EXT RELEASE CAP* 75 MG PO SCH (09:15)
[2020-01-13] MEDS: Acetaminophen TAB* 325 MG PO PRN (17:31)
--- NOTE | 2020-01-13 20:14 | PN ---
Progress Note - Progress Note Date of Service: 01/13/20 SOAP: Subjective: [] No events ON except fall. Repeat CT brain stable, CT C spine no fracture. Patient on regular floor Objective: []VSS, Afebrile AAOx3 MANUEL, CN II-XII grossly intact Motor 5/5 left side, RUE 4/5 very mild pronator drift, 4/5 RLE except Rt foot DF, PF, EHL 2-3/5 Sensory grossly intact to light touch Free ROM C spine. No tenderness to palpation C/T/L spine. Assessment: []64 yom HD#4 CHI, Left F/P contusions Plan: []Monitor VS, Neurochecks. SZ prophylaxis for a total of 7 days. PT to ambulate as tolerated. DC planning, potential Rehab. Follow up in office in 3-[address] of brain. Appreciate IM care. Juancarlos De Souza MD
[2020-01-13] MEDS: Calcium Carbonate CHEW TAB* 500 MG (TUMS) PO PRN (21:24)
[2020-01-13] MEDS: Lidocaine PATCH 5%* 1 PATCH TRANSDERM PRN (21:25)
[2020-01-14 01:22] LABS: Urine Appearance Clear; Urine Bilirubin Negative (Negative); Urine Blood Negative (Negative); Urine Color Straw; Urine Glucose Negative (Negative); Urine Ketones Negative (Negative); Urine Nitrite Negative (Negative); Urine Protein Negative (Negative); Urine Specific Gravity 1.004 (1.010-1.030); Urine Urobilinogen Negative (Negative)
[2020-01-14] MEDS: levETIRAcetam TAB* 500 MG PO SCH ×2 (05:16→17:41)
--- NOTE | 2020-01-14 07:44 | PN ---
Subjective Date of Service: 01/14/20 Interval History: Pt is feeling well. He slept well last night. No pain or SOB. He has only had 1 BM since being hospitalized but does not want anything to help him go at this point. Objective Active Medications: Acetaminophen (Tylenol Tab*) 650 mg PO Q4H PRN PRN Reason: MILD PAIN or TEMP > 100.4 Last Admin: 01/13/20 17:31 Dose: 650 mg Calcium Carbonate (Tums*) 500 mg PO Q4H PRN PRN Reason: INDIGESTION Last Admin: 01/13/20 21:24 Dose: 500 mg Levetiracetam (Keppra Tab*) 1,000 mg PO Q12H [facility] Last Admin: 01/14/20 05:16 Dose: 1,000 mg Lidocaine (Lidoderm 5% Patch*) 1 patch TRANSDERM DAILY PRN PRN Reason: pain - moderate (back pain) Last Admin: 01/13/20 21:25 Dose: 1 patch Ondansetron HCl (Zofran Inj*) 4 mg IV Q4H PRN PRN Reason: NAUSEA/VOMITING Last Admin: 01/12/20 16:01 Dose: 4 mg Pantoprazole Sodium (Protonix Tab*) 40 mg PO DAILY [facility] Last Admin: 01/13/20 09:15 Dose: 40 mg Pharmacy Profile Note (Lidocaine Patch Remove*) 1 note N/A 2100 [facility] Last Admin: 01/13/20 21:21 Dose: Not Given Venlafaxine HCl (Effexor Xr Cap*) 75 mg PO DAILY [facility] Last Admin: 01/13/20 09:15 Dose: 75 mg Vital Signs - 8 hr 01/14/20 01/14/20 00:00 02:59 Temperature 98.1 F 98.4 F Pulse Rate 63 71 Respiratory 16 17 Rate Blood Pressure 131/86 119/56 (mmHg) O2 Sat by Pulse 98 95 Oximetry Oxygen Devices in Use Now: None Appearance: Middle aged male lying in bed, NAD Eyes: No Scleral Icterus Ears/Nose/Mouth/Throat: Mucous Membranes Moist Respiratory: Symmetrical Chest Expansion and Respiratory Effort, Clear to Auscultation Cardiovascular: NL Sounds; No Murmurs; No JVD, RRR, No Edema Abdominal: NL Sounds; No Tenderness; No Distention Extremities: No Clubbing, Cyanosis Skin: No Nodules or Sclerosis Neurological: Alert and Oriented x 3 Result Diagrams: 01/12/20 13:54 01/12/20 13:54 Microbiology and Other Data: Microbiology 01/09/20 22:50 Nasal Screen MRSA (PCR) - Final Nasal Mrsa Not Detected Assess/Plan/Problems-Billing Mr Garduno is a 64 yo white male with PMHx depression, GERD presented to the ER after LOC after trauma of approx 100 lb object falling on his head from approx 6ft height and was found to have small L posterior frontal and L parietal intracranial hemorrhages. - Patient Problems (1) Traumatic intracranial hemorrhage Current Visit: Yes Status: Acute Code(s): S06.309A - UNSP FOCAL TBI W LOC OF UNSP DURATION, INIT SNOMED Code(s): 971535109 Comment: The patient presented with LOC and confusion after approx 100lb baseball mound fell on his head from approx 6ft height; initially admitted to the ICU for monitoring of ICH and now on medical floor. Repeat brain imaging has been stable without worsening of the bleed. No acute injury to thoracic or cervical spine on CT or MRI, though lumbar MRI is demonstrating L4-5 disc protrusion with impingement. Per neurosurgery pt needs nonoperative management only. Continue keppra BID for seizure prophylaxis- needs for 7 days total. Will be up tomorrow evening. Head laceration was repaired at admission 01/09/20, will need suture removal on 01/19/20. PT/OT evals indicate he will need STR. [facility] insurance authorization pending. (2) Protruded lumbar disc Current Visit: Yes Status: Acute Code(s): M51.26 - OTHER INTERVERTEBRAL DISC DISPLACEMENT, LUMBAR REGION SNOMED Code(s): 189025206 Comment: Continue pain control with tylenol. Pt did not indicate yestesrday that he needs more than tylenol. (3) Depressed Current Visit: Yes Status: Acute Code(s): F32.9 - MAJOR DEPRESSIVE DISORDER , SINGLE EPISODE, UNSPECIFIED SNOMED Code(s): 32522335 Comment: Continue venlafaxine. (4) GERD (gastroesophageal reflux disease) Current Visit: Yes Status: Acute Code(s): K21.9 - GASTRO-ESOPHAGEAL REFLUX DISEASE WITHOUT ESOPHAGITIS SNOMED Code(s): 063155779 Comment: Continue PPI. (5) DVT prophylaxis Current Visit: Yes Status: Acute Code(s): Z29.9 - ENCOUNTER FOR PROPHYLACTIC MEASURES, UNSPECIFIED SNOMED Code(s): 529855708 Comment: SCDs only as chemoprophylaxis contraindicated in setting of ICH (6) Full code status Current Visit: Yes Status: Acute Code(s): Z78.9 - OTHER SPECIFIED HEALTH STATUS SNOMED Code(s): 163923315 Status and Disposition: pending inpatient rehab vs [facility]
[2020-01-14] MEDS: Venlafaxine EXT RELEASE CAP* 75 MG PO SCH (08:54)
[2020-01-14] MEDS: Pantoprazole TAB * 40 MG TAB PO SCH (08:54)
[2020-01-14] MEDS: Acetaminophen TAB* 325 MG PO PRN (21:26)
[2020-01-14] MEDS: Lidocaine Patch REMOVE* 1 NOTE MISC SCH (21:27)
[2020-01-15] MEDS: levETIRAcetam TAB* 500 MG PO SCH (05:16)
[2020-01-15] MEDS: Pantoprazole TAB * 40 MG TAB PO SCH (08:48)
[2020-01-15] MEDS: Venlafaxine EXT RELEASE CAP* 75 MG PO SCH (08:48)
[2020-01-15 09:06] VITALS: BP 131/79
--- NOTE | 2020-01-16 00:51 | DS ---
CC: Bernardo Gross MD; Dr. De Souza * DISCHARGE SUMMARY: DATE OF ADMISSION: 01/09/20 DATE OF DISCHARGE: 01/15/20 PRIMARY CARE PHYSICIAN: Bernardo Gross MD PRIMARY DIAGNOSIS: Traumatic injury causing [id number] size areas of intracranial hemorrhage present in the left posterior frontal and parietal region. SECONDARY DIAGNOSES: 1. Depression. 2. Reflux. CONSULTS: Dr. De Souza of Neurosurgery. DISCHARGE MEDICATIONS: 1. Venlafaxine 75 mg daily XR. 2. Omeprazole 20 mg daily. HISTORY OF PRESENT ILLNESS: Mr. Garduno is a 64-year-old man with depression, heartburn, and psoriasis who came to the emergency department after a wooden baseball mound fell on his head. 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 He was standing in the batting cage when a 6 foot x 3 foot wooden baseball mound fell 6 feet from upright and the corner hit him in the head. The mound became dislodged after a ball had bounced off of it. The patient immediately lost consciousness and after waking up, he experienced nausea without vomiting. He also felt confused, restless, and lethargic, so he was transferred to the emergency room for further evaluation. HOSPITAL COURSE: In the emergency room, the patient was noted to have laceration which was repaired in the emergency room with suture removal indicated for 01/19/20. In the emergency room, a CT of his brain showed small intracranial hemorrhages. Dr. De Souza was consulted and it was not felt that the patient needed urgent neurosurgical intervention, although he did recommend to start the patient on a 7-day course of Keppra for seizure prophylaxis and to observe at least for 24 hours in the ICU setting with repeat imaging for monitoring of interval change of hemorrhages. The patient's repeat images were stable and neurosurgical team recommended to continue neurosurgical management. Physical therapy evaluation recommended acute rehab setting for the patient upon discharge. When the patient got approval, he was accepted to [facility]. PERTINENT DIAGNOSTIC STUDIES: CBC notable for hemoglobin mildly decreased at 13 with unknown baseline, history of lower hemoglobin with MCV mildly increased to 96. BMP unremarkable. UA unremarkable. Brain CT without contrast with [id number] sized areas of intracranial hemorrhage present in the left posterior frontal and parietal region without evidence for mass effect. CTA head and showed stable left parietal posttraumatic intraparenchymal hemorrhage without new intra or extraaxial hemorrhage, normal head CTA. CT lumbar spine with no traumatic abnormalities, mild multilevel lumbar spondylopathy. Thoracic spine CT with no traumatic abnormalities with mild thoracic spondylopathy. Repeat brain CT with again noted intraparenchymal hematomas of the left frontoparietal region, the largest measuring up to 1.8 cm similar in size and appearance to CT taken 1 day prior. Brain MRI without contrast with stable left parietal intraparenchymal hemorrhage , no new hemorrhages or infarcts, age-related atrophy, and mild chronic small vessel ischemic disease. Cervical spine MRI with no evidence for spinal cord contusion, [id number] cervical spondylosis. MRI of lumbar spine without contrast with L4-L5 moderate-sized central disk protrusion indenting the thecal sac. There is impingement upon left descending L5 nerve root. Additionally, at L5-S1 there is a broad-based protrusion with asymmetric protrusion towards the left and there may be impingement upon the left exiting L5 nerve, facet arthropathy is noted, no evidence of conus medullaris compression is noted. DISCHARGE PLAN: The patient will be discharged to [facility] for ongoing acute rehabilitation. He should follow up with Dr. De Souza in 3 to 4 weeks for followup given recent intracranial hemorrhage and also L4-L5 disk protrusion with impingement, which thus far has been recommended to undergo conservative treatment. The patient completed 7 days of Keppra for seizure prophylaxis and he will be just be discharged on his home medications. DIET: Healthy diet, low in processed foods. ACTIVITY: As tolerated per PMRU. DISPOSITION: [facility]. CONDITION: Good. TIME SPENT: Approximately 60 minutes was spent on the discharge of this patient , more than half of which was spent with care coordination at bedside for interview and exam. [id number]/[facility] #: [id number] PAULA
== END 2020-01-15 09:45 | DRG 83 ==
LOC: ED 16:18 → ICU 21:20 → MED 01-11 17:31 → ICU 01-12 08:25 → MED 01-13 07:31 → MEDTELE 01-13 08:55
PROVIDERS: ADMIT Nurse Practitioner Adult Health; ATTEND Internal Medicine
PROC: 0HQ0XZZ Repair Scalp Skin, External Approach (ICD-10-PCS; principal; 2020-01-09)
DX: S06.309A Unspecified focal traumatic brain injury with loss of consciousness of unspecified duration, initial encounter (principal); G81.91 Hemiplegia, unspecified affecting right dominant side; W22.8XXA Striking against or struck by other objects, initial encounter; M51.26 Other intervertebral disc displacement, lumbar region; G89.29 Other chronic pain; F32.9 Major depressive disorder, single episode, unspecified; W19.XXXA Unspecified fall, initial encounter; Y92.230 Patient room in hospital as the place of occurrence of the external cause; S01.91XA Laceration without foreign body of unspecified part of head, initial encounter; L40.9 Psoriasis, unspecified; Y92.89 Other specified places as the place of occurrence of the external cause; Z28.21 Immunization not carried out because of patient refusal; K21.9 Gastro-esophageal reflux disease without esophagitis; Z85.828 Personal history of other malignant neoplasm of skin
CPT/HCPCS: 36415; 70450; 70496; 70498; 70551; 72125; 72128; 72131; 72141; 72148; 80048; 80053; 81003; 83036; 83735; 85025; 85610; 87641; 96365; 96366; 96367; 96375; 99285; A9270-GY; J1953; J2405; J2765; J3480; Q9967

== ENCOUNTER 2020-01-15 08:40 | Inpatient (IN) | payer MEDICARE ==
[2020-01-15] MEDS ORDERED: Senna TAB 8.6 mg* TAB PO PRN (11:30)
--- NOTE | 2020-01-15 13:01 | PMRUTEAM ---
PMRU: Team Meeting Current Status: Nursing: Current Status Skin Deviations [Right Laceration forehead] Skin Deviations [General] Rash Skin Deviation Description [ sutures intact Right forehead] Skin Deviation Description [ Psoriasis over entire body General] PHYSICAL THERAPY: CURRENT STATUS: Mod assist transfers, mod to max assist ambulating 80 feet, CG?Mod assist bed mobility OCCUPATIONAL THERAPY: CURRENT STATUS: Set up UB Dressing, Partial/Mod assist LB Dressing, max assist don/doff footwear, mod assist bathing, partial/mod assist toilet transfers, partial/mod assist toileting SPEECH LANGUAGE PATHOLOGY:CURRENT STATUS: Regular diet, speech language skills ok, cognitive exam ongoing Goals: Physical Therapy: Goals Ambulation Assistive Devices Rolling Walker Stairs Recommended Devices One Rail Number of Stairs 7 - Interdisciplinary Staff Present Rf Test Engineer/Social Work Staff Present: Bharati Singleton LMSW Nursing Staff Present: Joaquina Gauthier RN OT Staff Present: Deya Collins PT Staff Present: Harvinder Lawson NUT PACKER Staff Present: Cricket Peterson Medicine Note: Length of Stay: 3 weeks Anticipated Discharge Destination: Home Tentative Discharge Date: February 05, 2020 Discharged to: Home
[2020-01-15] MEDS ORDERED: levETIRAcetam TAB* 500 MG PO SCH (18:00)
[2020-01-15] MEDS: levETIRAcetam TAB* 500 MG PO SCH (18:12)
[2020-01-15] MEDS: Acetaminophen TAB* 325 MG PO PRN (18:19)
[2020-01-15] MEDS: Docusate CAP* 100 MG PO SCH (20:45)
[2020-01-15] MEDS: Triamcinolone 0.025% OINT * 15 GM TUBE TOPICAL SCH (20:45)
--- NOTE | 2020-01-15 22:39 | HP ---
ADMISSION HISTORY AND PHYSICAL: DATE OF ADMISSION: 01/15/20 REASON FOR ADMISSION: Traumatic intracerebral hemorrhage with right-sided weakness. HISTORY OF ILLNESS: Zach Garduno is a 64-year-old male. 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 On 01/09/20, he was working in the [employer]. There was a wooden baseball mound propped up on its side. The patient was struck on the right side of his head with the baseball mound after it fell off the wall where it was propped up. He was fell to the ground and lost consciousness. The student that he was working with had his father present with him. The father called 911. The patient was transported to the emergency room. In the emergency room, he had a CAT scan of his brain as well as a CT of his thoracic, lumbar, and cervical spine. The patient's CAT scan of his brain showed a [id number] size of intracranial hemorrhage present in the left posterior frontal and parietal region. Dr. De Souza was called and the patient was admitted to the hospital. He did have a CAT scan of his cervical spine, which showed a subtle possible cord contusion at C4-5. The CAT scan was repeated the following day where no evidence for spinal cord contusion was seen. The patient had an MRI of his brain done on 01/10/20. Again, it demonstrated a left parietal intraparenchymal hemorrhage. The patient was monitored on the acute hospital floor. On the morning of 01/13/20, the patient was found on the floor of his room. He did have an another CAT scan of his brain, which showed that the intraparenchymal hemorrhage was stable. The patient was felt to have physical therapy, occupational therapy, and speech therapy needs. He is now being admitted for inpatient rehab so that he might return to independent living. PAST MEDICAL HISTORY: Significant for mild depression. The patient has a history of alcohol dependence, but he has been sober for 7 years. He regularly attends 12 step meetings. CURRENT MEDICATIONS: Include: 1. Keppra. 2. Protonix. 3. Effexor. 4. He normally takes a baby aspirin every day, but that is on hold. 5. He also uses Kenalog cream for psoriasis. ALLERGIES: The patient has no known drug allergies. FAMILY HISTORY: Not significant, although he did have a father who had esophageal cancer. SOCIAL HISTORY: The patient denies any alcohol use and does not smoke. 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 He is and is not in contact with his ex-. He does have a son who lives in [place] who he says he is in regular contact with. REVIEW OF SYSTEMS: The patient is with no current shortness of breath or chest pain. PHYSICAL EXAMINATION VITAL SIGNS: The patient's temperature is 97.9, blood pressure is 115/70, pulse 72, respirations 16. HEENT: He has a laceration over his right eyebrow that has stitches in it at the present time. The suture site is clean and dry and intact. 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 NECK: Supple. LUNGS: Lung sounds clear to auscultation bilaterally. HEART: Heart sounds are regular. S1 and S2 are audible. ABDOMEN: Soft and nontender. EXTREMITIES: His extremities show normal muscle bulk and tone. NEUROLOGIC: Sensation appears to be intact. He has dorsiflexion weakness in the right foot with his dorsiflexion being about 3/5. Plantar flexion appears to be 4/5. Quadriceps are about 4/5, hamstrings 4/5 and hip flexors appear to be at least 4+/5. FUNCTIONAL EXAM: The patient transfers with min assist. ASSESSMENT: Traumatic closed head injury with a left intraparenchymal hemorrhage. PLAN: We are going to integrate him into a comprehensive and therapeutic rehab program with the following goals: 1. Physical Therapy will work with the patient. They are going to work on functional transfer training, ambulation training with a walker. 2. Occupational Therapy will see the patient, work on his activities of daily living including toileting and toilet transfers. 3. Head stockings for DVT prophylaxis. Given his hemorrhage, chemical prophylaxis is contraindicated. 4. Speech therapy will see the patient. Evaluate his cognitive status and treat him appropriately. 5. Continue venlafaxine for depression. 6. Continue Kenalog cream for psoriasis. 7. Taper off Keppra. His Keppra will stop after 7-day prophylactic treatment with tomorrow morning's dose. 8. His bowels are regulated. 9. Continue Protonix for gastroesophageal reflux disease like symptoms. 10. Family training is appropriate. 11. Home with appropriate services. ESTIMATED LENGTH OF STAY: Three weeks. [id number]/CPS #: [id number] PAULA
[2020-01-16] MEDS: levETIRAcetam TAB* 500 MG PO SCH (06:25)
[2020-01-16] MEDS: Pantoprazole TAB * 40 MG TAB PO SCH (08:02)
[2020-01-16] MEDS: Docusate CAP* 100 MG PO SCH ×2 (08:02→21:26)
[2020-01-16] MEDS: Venlafaxine EXT RELEASE CAP* 75 MG PO SCH (08:02)
[2020-01-16] MEDS ORDERED: Influenza VAC *QUAD* 2019-20* 0.5 ML SYRINGE IM ONE (09:00)
[2020-01-16] MEDS ORDERED: Pneumococcal *Vac Polyvalent 0.5 ML VIAL IM ONE (09:00)
[2020-01-16] MEDS: Triamcinolone 0.025% OINT * 15 GM TUBE TOPICAL SCH ×2 (09:39→21:31)
--- NOTE | 2020-01-16 10:29 | PN ---
Progress Note Date of Service: 01/16/20 Note: SHIV BRIAN was visited. He was seen seated in his chair. Concerned about functional status due to his athletic interests. c/o LBP. Takes Motrin at home and stretches. Current Medications: Active Medications Generic Name Dose Route Start Last Admin Trade Name Freq PRN Reason Stop Dose Admin Acetaminophen 650 mg 01/15/20 11:30 01/15/20 18:19 Tylenol Tab* PO 650 mg Q6H PRN Administration FEVER > 101 Docusate Sodium 100 mg 01/15/20 21:00 01/16/20 08:02 Colace Cap* PO 100 mg BID RONI Administration Pantoprazole Sodium 40 mg 01/16/20 09:00 01/16/20 08:02 Protonix Tab* PO 40 mg DAILY RONI Administration Senna 2 tab 01/15/20 11:30 Senokot 8.6 Mg Tab* PO BEDTIME PRN CONSTIPATION Triamcinolone Acetonide 1 applic 01/15/20 21:00 01/16/20 09:39 Triamcinolone 0.025% Oint * TOPICAL 1 applic BID RONI Administration Venlafaxine HCl 75 mg 01/16/20 09:00 01/16/20 08:02 Effexor Xr Cap* PO 75 mg DAILY RONI Administration Vital Signs: Vital Signs Temp Pulse Resp BP Pulse Ox 97.6 F 78 12 134/73 96 01/16/20 05:00 01/16/20 05:00 01/16/20 05:00 01/16/20 05:00 01/16/20 08:00 Exam: HEENT: Right beye deviated sup/lat. Otherwise, no gross facial asymmetries. Lungs: CTA. Heart: RRR. Abd: Soft, NT, +BS. Ext: No c/c/e. Neuro: Speech and language intact. Strength 4/5 shd flexion. 5/5 UE's otherwise. 4+/5 LE's except R DF 2/5. Assessment/Plan: 01/16/20 10:35 1. TBI - continue rehabilitation therapies. 2. R foot drop - may need AFO. 3. LBP - try Tylenol and stretch.
[2020-01-16] MEDS: Acetaminophen TAB* 325 MG PO PRN (12:08)
[2020-01-17] MEDS: Acetaminophen TAB* 325 MG PO PRN ×3 (06:10→21:19)
[2020-01-17] MEDS: Pantoprazole TAB * 40 MG TAB PO SCH (08:44)
[2020-01-17] MEDS: Venlafaxine EXT RELEASE CAP* 75 MG PO SCH (08:44)
[2020-01-17] MEDS: Docusate CAP* 100 MG PO SCH ×2 (08:44→21:19)
[2020-01-17] MEDS: Triamcinolone 0.025% OINT * 15 GM TUBE TOPICAL SCH ×2 (11:06→21:21)
--- NOTE | 2020-01-17 12:48 | PN ---
Progress Note Date of Service: 01/17/20 Note: SHIV BRIAN was visited. Therapy notes read and reviewed. Current Medications: Active Medications Generic Name Dose Route Start Last Admin Trade Name Poonam PRN Reason Stop Dose Admin Acetaminophen 650 mg 01/15/20 11:30 01/17/20 12:05 Tylenol Tab* PO 650 mg Q6H PRN Administration FEVER > 101 Docusate Sodium 100 mg 01/15/20 21:00 01/17/20 08:44 Colace Cap* PO 100 mg BID RONI Administration Pantoprazole Sodium 40 mg 01/16/20 09:00 01/17/20 08:44 Protonix Tab* PO 40 mg DAILY RONI Administration Senna 2 tab 01/15/20 11:30 Senokot 8.6 Mg Tab* PO BEDTIME PRN CONSTIPATION Triamcinolone Acetonide 1 applic 01/15/20 21:00 01/17/20 11:06 Triamcinolone 0.025% Oint * TOPICAL 1 applic BID RONI Administration Venlafaxine HCl 75 mg 01/16/20 09:00 01/17/20 08:44 Effexor Xr Cap* PO 75 mg DAILY RONI Administration Vital Signs: Vital Signs Temp Pulse Resp BP Pulse Ox 97.8 F 59 20 138/78 96 01/17/20 06:12 01/17/20 06:12 01/17/20 06:12 01/17/20 06:12 01/17/20 06:12 Exam: HEENT: No gross facial asymmetries. Incision R forehead well-opposed, sutures inplace, no signs of infection. Lungs: CTA Heart: RRR. Abd: Soft. NT, +BS. Ext: No asymmetries, R foot drop. Neuro: Alert and oriented. Speech and language intact. Strength 5/5 except R DF 2+/5. Amb without shoes R foot sliding on floor. Assessment/Plan: 01/16/20 10:35 1. TBI - continue rehabilitation therapies. 2. R foot drop - may need AFO. 3. LBP - try Tylenol and stretch.
--- NOTE | 2020-01-17 12:48 | PN ---
Progress Note Note: SHIV BRIAN was visited. is in attendance. She noted inversion of the right ankle with ambulation with sneakers on today. Reassured and encouraged re: prognosis. Current Medications: Active Medications Generic Name Dose Route Start Last Admin Trade Name Freq PRN Reason Stop Dose Admin Acetaminophen 650 mg 01/15/20 11:30 01/17/20 12:05 Tylenol Tab* PO 650 mg Q6H PRN Administration FEVER > 101 Docusate Sodium 100 mg 01/15/20 21:00 01/17/20 08:44 Colace Cap* PO 100 mg BID RONI Administration Pantoprazole Sodium 40 mg 01/16/20 09:00 01/17/20 08:44 Protonix Tab* PO 40 mg DAILY RONI Administration Senna 2 tab 01/15/20 11:30 Senokot 8.6 Mg Tab* PO BEDTIME PRN CONSTIPATION Triamcinolone Acetonide 1 applic 01/15/20 21:00 01/17/20 11:06 Triamcinolone 0.025% Oint * TOPICAL 1 applic BID RONI Administration Venlafaxine HCl 75 mg 01/16/20 09:00 01/17/20 08:44 Effexor Xr Cap* PO 75 mg DAILY RONI Administration Vital Signs: Vital Signs Temp Pulse Resp BP Pulse Ox 97.8 F 59 20 138/78 96 01/17/20 06:12 01/17/20 06:12 01/17/20 06:12 01/17/20 06:12 01/17/20 06:12 Exam: HEENT: R eye deviated sup/laterally. R forehead laceration with sutures in place, well-opposed, no signs of infection. Lungs: CTA. Heart: RRR. Ext: Mild edema R foot. Neuro: Speech and language intact. Strength 4+/5 throughout except right DF 2+ /5. Able to go sit to stand. Amb with RW slightly unsteady with narrow base of support. R foot drop, sliding foot on floor. Assessment/Plan: 01/16/20 10:35 1. TBI - continue rehabilitation therapies. 2. R foot drop - may need AFO. 3. LBP - no c/o today. 01/17/20 12:47
[2020-01-18 04:52] LABS: ABS Eosinophils 0.1 10^3/ul (0-0.6); ABS Lymphocytes 1.4 10^3/ul (1.0-4.8); ABS Monocytes 0.6 10^3/ul (0-0.8); ABS Neutrophils 2.6 10^3/ul (1.5-7.7); Eosinophil % 2.7 %; Hematocrit 37 % (42-52); Hemoglobin 12.2 g/dL (14.0-18.0); Lymphocyte % 29.9 %; Mean Corpuscular HGB Conc 33 g/dL (31-36); Mean Corpuscular Hemoglobin 31 pg (27-31); Mean Corpuscular Volume 94 fL (80-94); Mean Platelet Volume 7.7 fL (7.4-10.4); Nucleated Red Blood Cells % 0.1; Platelet Count 261 10^3/uL (150-450); Red Cell Distribution Width 15 % (10-15); White Blood Count 4.7 10^3/uL (3.5-10.8)
[2020-01-18 05:00] LABS: Albumin 3.9 g/dL (3.2-5.2); Calcium 9.1 mg/dL (8.6-10.3); Potassium 4.2 mmol/L (3.5-5.0); Total Bilirubin 0.4 mg/dL (0.2-1.0)
[2020-01-18 05:06] LABS: Albumin/Globulin Ratio 1.4 (1-3); EGFR African American 90.5 (>60); EGFR Non-African American 74.8 (>60); Globulin 2.8 g/dL (2-4); Total Protein 6.7 g/dL (6.4-8.9)
[2020-01-18] MEDS: Pantoprazole TAB * 40 MG TAB PO SCH (07:44)
[2020-01-18] MEDS: Docusate CAP* 100 MG PO SCH ×2 (07:44→21:03)
[2020-01-18] MEDS: Acetaminophen TAB* 325 MG PO PRN ×3 (07:44→21:03)
[2020-01-18] MEDS: Venlafaxine EXT RELEASE CAP* 75 MG PO SCH (07:47)
[2020-01-18] MEDS: Triamcinolone 0.025% OINT * 15 GM TUBE TOPICAL SCH ×2 (10:56→21:05)
--- NOTE | 2020-01-18 18:54 | PN ---
Progress Note Date of Service: 01/18/20 Note: SHIV BRIAN was visited. Therapy notes read and reviewed. He feels good but does note he gets tired. He still needs assistance with walking and transfers Current Medications: Active Medications Generic Name Dose Route Start Last Admin Trade Name Freq PRN Reason Stop Dose Admin Acetaminophen 650 mg 01/15/20 11:30 01/18/20 13:21 Tylenol Tab* PO 650 mg Q6H PRN Administration FEVER > 101 Docusate Sodium 100 mg 01/15/20 21:00 01/18/20 07:44 Colace Cap* PO 100 mg BID RONI Administration Pantoprazole Sodium 40 mg 01/16/20 09:00 01/18/20 07:44 Protonix Tab* PO 40 mg DAILY RONI Administration Senna 2 tab 01/15/20 11:30 Senokot 8.6 Mg Tab* PO BEDTIME PRN CONSTIPATION Triamcinolone Acetonide 1 applic 01/15/20 21:00 01/18/20 10:56 Triamcinolone 0.025% Oint * TOPICAL 1 applic BID RONI Administration Venlafaxine HCl 75 mg 01/16/20 09:00 01/18/20 07:47 Effexor Xr Cap* PO 75 mg DAILY RONI Administration Vital Signs: Vital Signs Temp Pulse Resp BP Pulse Ox 98.2 F 69 18 134/79 97 01/18/20 15:56 01/18/20 15:56 01/18/20 15:56 01/18/20 15:56 01/18/20 15:56 Lab Results: Laboratory Results - last 24 hr 01/18/20 01/18/20 04:44 04:44 WBC 4.7 RBC 3.90 L Hgb 12.2 L Hct 37 L MCV 94 MCH 31 MCHC 33 RDW 15 Plt Count 261 MPV 7.7 Neut % (Auto) 55.0 Lymph % (Auto) 29.9 [place] % (Auto) 11.7 Eos % (Auto) 2.7 Baso % (Auto) 0.7 Absolute Neuts (auto) 2.6 Absolute Lymphs (auto) 1.4 Absolute Monos (auto) 0.6 Absolute Eos (auto) 0.1 Absolute Basos (auto) 0.0 Absolute Nucleated RBC 0.0 Nucleated RBC % 0.1 Sodium 140 Potassium 4.2 Chloride 108 Carbon Dioxide 28 Anion Gap 4 BUN 18 Creatinine 1.00 Est GFR ( Amer) 90.5 Est GFR (Non-Af Amer) 74.8 BUN/Creatinine Ratio 18.0 Glucose 95 Calcium 9.1 Total Bilirubin 0.40 AST 14 ALT 15 Alkaline Phosphatase 52 Total Protein 6.7 Albumin 3.9 Globulin 2.8 Albumin/Globulin Ratio 1.4 Exam: HEENT: Suture line over right eyebrow healing LUNGS: Clear bilaterally HEART: Reg rhythm ABDOMEN: Soft, +BS EXTREMITIES: Normal tone. No edema NEUROLOGIC: Alert, oriented x3. Sensation intact, still with right foot drop Assessment/Plan: 1. 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 2. Right foot drop: May need AFO 3. Depression: Effexor 4. DVT Prophylaxis: Given ICH, chemical prophylaxis contraindicated. TEDs 5. Advance Directives: Full Code 01/18/20 18:52 01/18/20 18:54
[2020-01-19] MEDS: Docusate CAP* 100 MG PO SCH ×2 (09:01→20:00)
[2020-01-19] MEDS: Pantoprazole TAB * 40 MG TAB PO SCH (09:01)
[2020-01-19] MEDS: Acetaminophen TAB* 325 MG PO PRN ×3 (09:02→19:16)
[2020-01-19] MEDS: Venlafaxine EXT RELEASE CAP* 75 MG PO SCH (09:02)
[2020-01-19] MEDS: Triamcinolone 0.025% OINT * 15 GM TUBE TOPICAL SCH ×2 (12:03→20:00)
--- NOTE | 2020-01-19 12:45 | PMRUTEAM ---
PMRU: Team Meeting Current Status: Physical Therapy: Current Status Current Rolling Status Supervision/Touching Current Supine <-> Sit Status Supervision/Touching Current Sit <-> Stand Status Supervision/Touching Current Bed <-> Chair Status Partial/Moderate Transfer/Bed Mobility Rolling Walker Recommended Devices Current Picking Up Object Not attempted Status Current Ambulation Assistance Partial/Moderate Status Ambulation Assistive Device Rolling Walker Ambulation Conditions Two or More Turns,Uneven Surfaces Current Ambulation Distance 2x150' Current Wheelchair Propulsion Not Applicable Ability Status Current Stair Climbing Status Not attempted Current Curb Assistance Status Not attempted Objective Comments Proprioceptive testing: LLE great toe and ankle grossly intact 5/5 correct RLE great toe moderately impaired 2/5 correct; R ankle grossly intact 5/5 Occupational Therapy: Current Status Current Upper Body Dressing Setup or Clean-up Assist Status Current Lower Body Dressing Partial/Moderate Status Current Footwear Status Supervision/Touching Current Bathing Status Partial/Moderate Current Grooming Status Setup or Clean-up Assist Current Toileting Status Partial/Moderate Current Toilet Transfer Status Partial/Moderate Current Eating Status Independent Nursing: Current Status Skin Deviations [Right Laceration forehead] Skin Deviations [General] Rash Skin Deviation Description [ sutures intact Right forehead] Skin Deviation Description [ psoriasis, per pt General] Bladder Current Status dependent Bowel Current Status dependent Nutrition Current Status 100% Medication Current Status dependent Rec Therapy: Current Status Summary of Assessment and Recreation therapy assessment is complete and pt Clinical Impression is aware of services. Pt uses his Ipad often for independent leisure activities. Pt is open to continued leisure visits and pet therapy. Treatment Goals Pt will engaged in leisure activities while on the unit as tolerated Treatment Plan Provide recreation therapy services and encourage involvement Social Work: Current Status Discharge Plan return home with home care svs and support from his girlfriend Potential for Family Training pt's girlfriend is pt's adult caregiver Anticipated Discharge Home Destination Discharge With home care svs and support from girlfriend Nutrition: Current Status Monitoring pt adm to PMRU 01/15 without notable nutritional concerns. Full nutrition assessement planned 01/22 for NDS protocol. Pt is accepting a regular diet well, no noted chewing or swallowing deficits. Eating 95-100% of most meals. Labs are unremarkable. No reported bowel/GI issues. Initial nutritional goals as outlined below. Speech: Current Status Assessment Patient is progressing as expected. Patient I'ly completed problems that required alternating working memory, and problems requiring short-term memory given instruction in chunking technique. Goals: Physical Therapy: Goals Goals to Be Accomplished in ( 21 Days) Goal: Rolling Assistance Independent Goal Supine <-> Sit Status Independent Goal Sit <-> Stand Status Independent Goal Bed <-> Chair Status Independent Transfer/Bed Mobility Rolling Walker Recommended Devices Goal: Picking Up Object Independent Goal: Car Transfer Status Setup or Clean-up Assist Goal: Ambulation Assistance Independent Ambulation Assistive Devices Rolling Walker Ambulation Distance (ft) 150 Goal: Wheelchair Propulsion Not Applicable Ability Goal: Stairs Assistance Independent Stairs Recommended Devices One Rail Number of Stairs 12 Goal: Curb Assistance Independent Occupational Therapy: Goals Goals to be Completed in (Days 21 days ) Goal Upper Body Dressing Independent Routine Goal Lower Body Dressing Independent Routine Goal Footwear Status Independent Goal Bathing Routine (OT) Independent Goal Grooming Routine Independent Goal Toilet Hygiene and Independent Clothing Management Routine Goal Toilet Transfer Routine Independent Goal Functional Transfers for Independent ADL Goal Feeding Routine Independent Goal Light Housekeeping Tasks Partial/Moderate Nutrition: Goals Intervention Goals 1. adequate intake to support hydration and lean body mass without add'l wt gain 2. maintain serum electrolytes WNL 3. maintain regulated bowel pattern; no c/o constipation (or diarrhea) Speech: Goals Speech Goal 1 Memory Goal 1 Comments Memory Goal, Long-Term: Pt will use compensatory strategies to encode and retrieve 5/5 new items after delay of 20 minutes, Independently, for independence in mobility safety, ADLs and community access. Status: Progressing as expected. Memory Goal, Short-term: Pt will use compensatory strategies to encode and retrieve 5/5 new items after delay of 4 minutes, given skilled instruction, Moderate cueing, and extra time. Status: Progressing as expected. Patient encoded 4 new pictures by following printed directions on the reverse side, given moderate cueing to use attention strategies of naming, gesture, description, personal association , and immediate hidden recall. Given initial instruction, patient I'ly followed spaced retrieval strategy of recalling after increasing intervals up to 4 minutes. WAREHOUSE SHIPPING RECEIVING CLERK provided a check-writing task and strategy, with date, payee and amount printed on the reverse side of blank checks. Patient attempted to encode all three details and rushed to write before he forgot, yet repeatedly was disappointed that he needed to look again for the amount. WAREHOUSE SHIPPING RECEIVING CLERK instructed patient to predict his limit, encode one or two details at a time, then plan to look again for the other detail. Patient found that when he chose to encode date and payee first, he felt no need to campbell to recall, and looked back to copy the amount with confidence. Speech Goal 2 Problem solving Speech Goal 2 Comments Problem Solving Goal: Long-Term Goal: Pt will use compensatory strategies to solve moderately complex routine problems, for transfer and mobility safety, adaptive dressing, time and money management; with 100% accuracy, Independently. Status: Progressing as expected. Problem Solving Goal: Short-Term: Pt will use compensatory strategies to solve simple routine problems, for transfer and mobility safety, adaptive dressing, time and money management; with 80% accuracy, given skilled instruction, Moderate cueing, and extra time. Status: Progressing as expected. Patient recalled and verbalized transfer safety procedures for standing, walking and sitting with use of a rolling walker with 100% accuracy, from memory of prior PT/OT instruction. WAREHOUSE SHIPPING RECEIVING CLERK reinforced steps by presenting printed text and pictures of the steps. Patient completed the [employer] [place] Making Test within normal limits: Part A sequence in 0:58 ( average 0:29, deficient >1.:18); and Part B alternating sequence in 1:24 (average 1:15, deficient >4.33). Given instruction, patient chose a successful chunkng strategy for copying more information than he could recall at once. Social Work: Goals Discharge Plan return home with home care svs and support from his girlfriend Potential for Family Training pt's girlfriend is pt's adult caregiver Anticipated Discharge Home Destination Discharge With home care svs and support from girlfriend Nursing: Goals Bladder Goal independent Bowel Goal independent Nutrition Goal continue to eat 100% of meals Medication Goal independent Care Plan: Care Plan ADL's - Improve/Maintain Start: 01/15/20 14:23 Freq: [id number] Status: Active Target: 01/16/20 Protocol: Activity Type Activity Date Activity User E-Sign Co-Sign Detail Recorded Client Recorded Date Recorded By Document 01/18/20 15:04 [id number] 01/18/20 15:04 [id number] 01/18/20 15:04 PMRU Outcome: ADL's/ADL Transfers Orders/Interventions Occupational Therapy Evaluation & Treatment Device Yes Address Deficits Secondary To: L parietal intraparenchyma l hemorrhages Patient to receive OT 5x/wk for 60-120 Therex min/day Self Care Management Group Therapy Neuromuscular ReEducation UE/LE ADL's with Assist Yes: Independent ADL Transfers with Assist Yes: Independent Toileting: Transfers,Clothing Management Yes: ,Hygeine w/Assist Independent Light Kitchen/Laundry w/Assist Yes: Parital/ Moderate Assist Other Outcome/Goals Pt tolerates OT tx sesion well this date. Noted increased balance and activity tolerance throughout session. Progression Toward Outcome/Goals Progressing Communication-Improve/Maintain Start: 01/15/20 16:45 Freq: [id number]@[id number],1900 Status: Active Target: 02/05/20 Protocol: Activity Type Activity Date Activity User E-Sign Co-Sign Detail Recorded Client Recorded Date Recorded By Document 01/19/20 07:00 [id number] 01/19/20 11:53 [id number] 01/19/20 07:00 PMRU Outcome: Communication/Cognitive Status Current Communication Outcome/Goals Makes Needs Known Effectively Progression Toward Outcomes/Goals Progressing DVT Prophylaxis- Improve/Maintain Start: 01/15/20 16:45 Freq: DAILY@[id number] Status: Active Target: 02/05/20 Protocol: Activity Type Activity Date Activity User E-Sign Co-Sign Detail Recorded Client Recorded Date Recorded By Document 01/19/20 07:00 [id number] 01/19/20 11:53 [id number] 01/19/20 07:00 PMRU Outcome: DVT Prophylaxis Current DVT Outcome/Goals Remains Free of DVT Complies with DVT Prophylaxis /Treatment Demonstrates Knowledge of DVT Prevention/ Treatment Progression Toward Outcome/Goals Progressing Discharge Planning - Improve/Maintain Start: 01/15/20 16:45 Freq: [id number] Status: Active Target: 02/05/20 Protocol: Activity Type Activity Date Activity User E-Sign Co-Sign Detail Recorded Client Recorded Date Recorded By Document 01/19/20 07:00 [id number] 01/19/20 11:53 [id number] 01/19/20 07:00 PMRU Outcome: Discharge Planning Update Patient Family No: not present Current Discharge Planning Outcome/Goals Demonstrates Understanding of Discharge Plan Progression Toward Outcome/Goals Progressing Education-Improve/Maintain Start: 01/15/20 16:45 Freq: DAILY@[id number],1900 Status: Active Target: 02/05/20 Protocol: Activity Type Activity Date Activity User E-Sign Co-Sign Detail Recorded Client Recorded Date Recorded By Document 01/19/20 07:00 [id number] 01/19/20 11:53 [id number] 01/19/20 07:00 PMRU Outcome: Education Current Education Outcome/Goals Demonstrate/ Verbalize Understanding of Written Discharge Instructions Demonstrates Skills Encourage Questions Progression Toward Outcome/Goals Progressing /GI-Improve/Maintain Start: 01/15/20 16:45 Freq: [id number] Status: Complete Target: 02/05/20 Protocol: Activity Type Activity Date Activity User E-Sign Co-Sign Detail Recorded Client Recorded Date Recorded By Document 01/17/20 07:00 [id number] 01/17/20 07:35 [id number] 01/17/20 07:00 PMRU Outcome: Genitourinary/ Gastrointestinal Current Gastrointestinal Outcome/Goals Maintain/ Achieve Bowel Regularity in Accordance with Pt's Baseline Prevent Constipation Laxatives as Ordered Progression Toward Outcome/Goals Goals Met Outcome/Goals Met Remain Free of Emesis Prevent Constipation Current Genitourinary Outcome/Goals Maintain/ Achieve Urinary Continence Remain Free of Hospital- Acquired UTI Progression Toward Outcome/Goals Goals Met Outcome/Goals Met Maintain/ Achieve Adequate Urinary Output Outcome/Goals Met Comment up to BR Medication Administration Start: 01/15/20 16:45 Freq: [id number] Status: Active Target: 02/05/20 Protocol: Activity Type Activity Date Activity User E-Sign Co-Sign Detail Recorded Client Recorded Date Recorded By Document 01/19/20 07:00 [id number] 01/19/20 11:53 [id number] 01/19/20 07:00 PMRU Outcome: Medication Administration Current Moving Van Driver Outcome/Goals Patient Independent with Medication Administration at Home Progression Towards Outcome/Goals Progressing Is Patient Going Home on Lovenox? No Mobility- Improve/Maintain Start: 01/15/20 16:45 Freq: DAILY@699,0 Status: Active Target: 01/22/20 Protocol: Activity Type Activity Date Activity User E-Sign Co-Sign Detail Recorded Client Recorded Date Recorded By Document 01/18/20 15:03 [id number] 01/18/20 15:03 [id number] 01/18/20 15:03 PMRU Outcome: Mobility Physical Therapy Evaluation and Yes Treatment Activity OOB with Assistance Yes Device Yes Assistance Yes Patient to be seen 5x/wk for 60-120 min/ Mobility day for: Training Gait Training Balance Other Current Mobility Outcome/Goals Maintain/ Achieve Baseline Mobility Status Improve Mobility Status Demonstrates Proper Use of Assistive Devices Free from Complications of Immobility Progression Toward Outcome/Goals Progressing Bed Mobility Yes: independent Transfers Yes: independent with rolling walker. Gait x ft Yes: independent with rolling walker to 150' Up/Down Stairs Yes: independent with 1 rail up down 10 stairs Neurological- Improve/Maintain Start: 01/15/20 16:45 Freq: DAILY@[id number] Status: Active Target: 02/05/20 Protocol: Activity Type Activity Date Activity User E-Sign Co-Sign Detail Recorded Client Recorded Date Recorded By Document 01/19/20 07:00 [id number] 01/19/20 11:53 [id number] 01/19/20 07:00 PMRU Outcome: Neurological Weakness/Aphasia Weakness Right Side Weakness/Aphasia Comment RLE, s/p cerebral hemorrhage Current Neurological Outcome/Goals Maintain/ Achieve Baseline Neurological Status Improve Neurological Status Prevent Avoidable Neurological Decline Demonstrate Knowledge of Prevention/Tx of Neuro Disorders/ Complication Maintain/ Improve Strength/ROM Progression Toward Outcome/Goals Progressing Rec Therapy- Improve/Maintain Start: 01/15/20 16:01 Freq: [id number]@[id number] Status: Active Target: 01/22/20 Protocol: Activity Type Activity Date Activity User E-Sign Co-Sign Detail Recorded Client Recorded Date Recorded By Document 01/18/20 16:21 [id number] 01/18/20 16:28 [id number] 01/18/20 16:21 PMRU Outcome: Recreation Therapy Current Rec Ther Outcome/Goals Complete Rec Therapy Assessment Meet with Patient Regularly for Support Encourage Leisure Involvement Progression Toward Outcome/Goals Progressing Lack of Progression Comment Met with pt to provide a leisure visit. Pt talked about his cat and his girlfriend and how he was excited for her to visit this afternoon. Pt expressed interest in possibly playing a board game in the future. Outcome/Goals Met Complete Rec Therapy Assessment Outcome/Goals Met Comment Recreation therapy assessment complete Safety- Improve/Maintain Start: 01/15/20 10:25 Freq: DAILY@[id number] Status: Active Target: 02/05/20 Protocol: Activity Type Activity Date Activity User E-Sign Co-Sign Detail Recorded Client Recorded Date Recorded By Document 01/19/20 07:00 [id number] 01/19/20 11:53 [id number] 01/19/20 07:00 PMRU Outcome: Safety Current Safety Outcome/Goals Remain Free of Injury or Harm Cooperates with Safety Measures for Least Restrictive Environment Prevent Falls/ Injury Progression Toward Outcome/Goals Progressing Skin- Improve/Maintain Start: 01/15/20 16:45 Freq: DAILY@0700,1900 Status: Complete Target: 02/05/20 Protocol: Activity Type Activity Date Activity User E-Sign Co-Sign Detail Recorded Client Recorded Date Recorded By Document 01/17/20 07:00 [id number] [email or web address] 01/17/20 07:35 [id number] 01/17/20 07:00 PMRU Outcome: Skin Skin Risk Level No Risk Current Skin Outcome/Goals Maintain/ Improve Skin Integrity Progression Toward Outcome/Goals Goals Met Outcome/Goals Met Maintain/ Improve Wound Status - Interdisciplinary Staff Present Solar Business Developer/Social Work Staff Present: Bharati Singleton LMSW Nursing Staff Present: Hannah Whelan, NELL Nutrition Staff Present: Rosi Lopez OT Staff Present: Deya Collins PT Staff Present: Harvinder Lim Therapy Staff Present: Merle Lindquist WAREHOUSE SHIPPING RECEIVING CLERK Staff Present: Cricket Peterson Medicine Note: Length of Stay: 10 days Anticipated Discharge Destination: Home Tentative Discharge Date: 01/29/20 Discharged to: Home
--- NOTE | 2020-01-19 18:13 | PN ---
Progress Note Date of Service: 01/19/20 Note: SHIV BRIAN was visited. Therapy notes read and reviewed. He was discussed in interdisciplinary team rounds today. He has improved some. He may or may not need an AFO Current Medications: Active Medications Generic Name Dose Route Start Last Admin Trade Name Freq PRN Reason Stop Dose Admin Acetaminophen 650 mg 01/15/20 11:30 01/19/20 13:21 Tylenol Tab* PO 650 mg Q6H PRN Administration FEVER > 101 Docusate Sodium 100 mg 01/15/20 21:00 01/19/20 09:01 Colace Cap* PO 100 mg BID RONI Administration Pantoprazole Sodium 40 mg 01/16/20 09:00 01/19/20 09:01 Protonix Tab* PO 40 mg DAILY RONI Administration Senna 2 tab 01/15/20 11:30 Senokot 8.6 Mg Tab* PO BEDTIME PRN CONSTIPATION Triamcinolone Acetonide 1 applic 01/15/20 21:00 01/19/20 12:03 Triamcinolone 0.025% Oint * TOPICAL 1 applic BID RONI Administration Venlafaxine HCl 75 mg 01/16/20 09:00 01/19/20 09:02 Effexor Xr Cap* PO 75 mg DAILY RONI Administration Vital Signs: Vital Signs Temp Pulse Resp BP Pulse Ox 98.3 F 71 16 130/90 96 01/19/20 16:20 01/19/20 16:20 01/19/20 17:03 01/19/20 16:20 01/19/20 17:03 Exam: HEENT: Suture line over right eyebrow healing LUNGS: Clear bilaterally HEART: Reg rhythm ABDOMEN: Soft, +BS EXTREMITIES: Normal tone. No edema NEUROLOGIC: Alert, oriented x3. Sensation intact, still with right foot drop Assessment/Plan: 1. 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 2. Right foot drop: May need AFO 3. Depression: Effexor 4. DVT Prophylaxis: Given ICH, chemical prophylaxis contraindicated. TEDs 5. Advance Directives: Full Code 01/19/20 18:13
[2020-01-20] MEDS: Docusate CAP* 100 MG PO SCH ×2 (09:05→20:57)
[2020-01-20] MEDS: Venlafaxine EXT RELEASE CAP* 75 MG PO SCH (09:05)
[2020-01-20] MEDS: Triamcinolone 0.025% OINT * 15 GM TUBE TOPICAL SCH ×2 (09:05→20:57)
[2020-01-20] MEDS: Pantoprazole TAB * 40 MG TAB PO SCH (09:05)
[2020-01-20] MEDS: Acetaminophen TAB* 325 MG PO PRN (16:07)
--- NOTE | 2020-01-20 19:24 | PN ---
Progress Note Date of Service: 01/20/20 Note: SHIV BRIAN was visited. Therapy notes read and reviewed. He feels good with how his rehab is progressing. Suture line healing. Will remove sutures tomorrow Current Medications: Active Medications Generic Name Dose Route Start Last Admin Trade Name Freq PRN Reason Stop Dose Admin Acetaminophen 650 mg 01/15/20 11:30 01/20/20 16:07 Tylenol Tab* PO 650 mg Q6H PRN Administration FEVER > 101 Docusate Sodium 100 mg 01/15/20 21:00 01/20/20 09:05 Colace Cap* PO 100 mg BID RONI Administration Pantoprazole Sodium 40 mg 01/16/20 09:00 01/20/20 09:05 Protonix Tab* PO 40 mg DAILY RONI Administration Senna 2 tab 01/15/20 11:30 Senokot 8.6 Mg Tab* PO BEDTIME PRN CONSTIPATION Triamcinolone Acetonide 1 applic 01/15/20 21:00 01/20/20 09:05 Triamcinolone 0.025% Oint * TOPICAL 1 applic BID RONI Administration Venlafaxine HCl 75 mg 01/16/20 09:00 01/20/20 09:05 Effexor Xr Cap* PO 75 mg DAILY RONI Administration Vital Signs: Vital Signs Temp Pulse Resp BP Pulse Ox 97.8 F 72 18 125/80 96 01/20/20 16:05 01/20/20 16:05 01/20/20 16:05 01/20/20 16:05 01/20/20 18:53 Exam: HEENT: Suture line over right eyebrow healing LUNGS: Clear bilaterally HEART: Reg rhythm ABDOMEN: Soft, +BS EXTREMITIES: Normal tone. No edema NEUROLOGIC: Alert, oriented x3. Sensation intact, still with right foot drop Assessment/Plan: 1. 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 2. Right foot drop: May need AFO 3. Depression: Effexor 4. DVT Prophylaxis: Given ICH, chemical prophylaxis contraindicated. TEDs 5. Advance Directives: Full Code 6. Right forehead laceration: remove sutures tomorrow 01/20/20 19:24
[2020-01-21] MEDS: Pantoprazole TAB * 40 MG TAB PO SCH (09:48)
[2020-01-21] MEDS: Acetaminophen TAB* 325 MG PO PRN ×2 (09:48→21:25)
[2020-01-21] MEDS: Docusate CAP* 100 MG PO SCH ×2 (09:48→21:24)
[2020-01-21] MEDS: Venlafaxine EXT RELEASE CAP* 75 MG PO SCH (09:48)
[2020-01-21] MEDS: Triamcinolone 0.025% OINT * 15 GM TUBE TOPICAL SCH ×2 (09:49→21:25)
--- NOTE | 2020-01-21 19:40 | PN ---
Progress Note Date of Service: 01/21/20 Note: SHIV BRIAN was visited. Therapy notes read and reviewed. He thinks his dorsiflexion in his right foot is getting stronger. His sutures were removed from his forehead laceration without difficulty. Current Medications: Active Medications Generic Name Dose Route Start Last Admin Trade Name Freq PRN Reason Stop Dose Admin Acetaminophen 650 mg 01/15/20 11:30 01/21/20 09:48 Tylenol Tab* PO 650 mg Q6H PRN Administration FEVER > 101 Docusate Sodium 100 mg 01/15/20 21:00 01/21/20 09:48 Colace Cap* PO Not Given BID RONI Pantoprazole Sodium 40 mg 01/16/20 09:00 01/21/20 09:48 Protonix Tab* PO 40 mg DAILY RONI Administration Senna 2 tab 01/15/20 11:30 Senokot 8.6 Mg Tab* PO BEDTIME PRN CONSTIPATION Triamcinolone Acetonide 1 applic 01/15/20 21:00 01/21/20 09:49 Triamcinolone 0.025% Oint * TOPICAL 1 applic BID RONI Administration Venlafaxine HCl 75 mg 01/16/20 09:00 01/21/20 09:48 Effexor Xr Cap* PO 75 mg DAILY RONI Administration Vital Signs: Vital Signs Temp Pulse Resp BP Pulse Ox 98.1 F 78 20 145/99 95 01/21/20 16:05 01/21/20 16:05 01/21/20 16:05 01/21/20 16:05 01/21/20 16:05 Exam: HEENT: Suture line intact; sutures removed LUNGS: Clear bilaterally HEART: Reg rhythm ABDOMEN: Soft, +BS EXTREMITIES: Normal tone. No edema NEUROLOGIC: Alert, oriented x3. Sensation intact, still with right foot drop but improving Assessment/Plan: 1. 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 2. Right foot drop: May need AFO but improving 3. Depression: Effexor 4. DVT Prophylaxis: Given ICH, chemical prophylaxis contraindicated. TEDs 5. Advance Directives: Full Code 6. Right forehead laceration: removed sutures 01/21/20 19:40
[2020-01-22] MEDS: Acetaminophen TAB* 325 MG PO PRN ×2 (08:04→22:18)
[2020-01-22] MEDS: Pantoprazole TAB * 40 MG TAB PO SCH (08:04)
[2020-01-22] MEDS: Docusate CAP* 100 MG PO SCH ×2 (08:07→22:33)
[2020-01-22] MEDS: Venlafaxine EXT RELEASE CAP* 75 MG PO SCH (08:09)
[2020-01-22] MEDS: Triamcinolone 0.025% OINT * 15 GM TUBE TOPICAL SCH ×2 (08:09→22:17)
--- NOTE | 2020-01-22 17:40 | PN ---
Progress Note Date of Service: 01/22/20 Note: SHIV BRIAN was visited. Therapy notes read and reviewed. He has no problems today, but remains slightly unsteady when he walks and has a hard time maneuvering the walker Current Medications: Active Medications Generic Name Dose Route Start Last Admin Trade Name Freq PRN Reason Stop Dose Admin Acetaminophen 650 mg 01/15/20 11:30 01/22/20 08:04 Tylenol Tab* PO 650 mg Q6H PRN Administration FEVER > 101 Docusate Sodium 100 mg 01/15/20 21:00 01/22/20 08:07 Colace Cap* PO 100 mg BID RONI Administration Pantoprazole Sodium 40 mg 01/16/20 09:00 01/22/20 08:04 Protonix Tab* PO 40 mg DAILY RONI Administration Senna 2 tab 01/15/20 11:30 Senokot 8.6 Mg Tab* PO BEDTIME PRN CONSTIPATION Triamcinolone Acetonide 1 applic 01/15/20 21:00 01/22/20 08:09 Triamcinolone 0.025% Oint * TOPICAL 1 applic BID RONI Administration Venlafaxine HCl 75 mg 01/16/20 09:00 01/22/20 08:09 Effexor Xr Cap* PO 75 mg DAILY RONI Administration Vital Signs: Vital Signs Temp Pulse Resp BP Pulse Ox 97.3 F 73 16 138/84 96 01/22/20 16:05 01/22/20 16:05 01/22/20 16:05 01/22/20 16:05 01/22/20 16:05 Exam: HEENT: Suture line intact; sutures removed LUNGS: Clear bilaterally HEART: Reg rhythm ABDOMEN: Soft, +BS EXTREMITIES: Normal tone. No edema NEUROLOGIC: Alert, oriented x3. Sensation intact, still with right foot drop but improving Assessment/Plan: 1. 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 2. Right foot drop: May need AFO but improving 3. Depression: Effexor 4. DVT Prophylaxis: Given ICH, chemical prophylaxis contraindicated. TEDs 5. Advance Directives: Full Code 6. Right forehead laceration: removed sutures 01/22/20 17:40
[2020-01-23] MEDS: Docusate CAP* 100 MG PO SCH ×2 (09:05→22:16)
[2020-01-23] MEDS: Venlafaxine EXT RELEASE CAP* 75 MG PO SCH (09:07)
[2020-01-23] MEDS: Acetaminophen TAB* 325 MG PO PRN ×2 (09:08→16:21)
[2020-01-23] MEDS: Pantoprazole TAB * 40 MG TAB PO SCH (09:08)
[2020-01-23] MEDS: Triamcinolone 0.025% OINT * 15 GM TUBE TOPICAL SCH ×2 (09:09→22:16)
--- NOTE | 2020-01-23 20:10 | PN ---
Progress Note Date of Service: 01/23/20 Note: SHIV BRIAN was visited. Therapy notes read and reviewed. He reports back pain that pre-dates his injury. He normally handles this with stretching exercises which he is unable to do. It can be quite painful. He had a MRI of his lumbar spine when he had the accident which showed a moderate sized disc protrusion at L4/5 which may be impinging the left L5 nerve root. Current Medications: Active Medications Generic Name Dose Route Start Last Admin Trade Name Freq PRN Reason Stop Dose Admin Acetaminophen 650 mg 01/15/20 11:30 01/23/20 16:21 Tylenol Tab* PO 650 mg Q6H PRN Administration FEVER > 101 Acetaminophen/Codeine Phosphate 1 tab 01/23/20 20:05 Tylenol/Codeine 30 Mg Tab* PO Q6H PRN PAIN - MODERATE Docusate Sodium 100 mg 01/15/20 21:00 01/23/20 09:05 Colace Cap* PO Not Given BID RONI Pantoprazole Sodium 40 mg 01/16/20 09:00 01/23/20 09:08 Protonix Tab* PO 40 mg DAILY RONI Administration Senna 2 tab 01/15/20 11:30 Senokot 8.6 Mg Tab* PO BEDTIME PRN CONSTIPATION Triamcinolone Acetonide 1 applic 01/15/20 21:00 01/23/20 09:09 Triamcinolone 0.025% Oint * TOPICAL 1 applic BID RONI Administration Venlafaxine HCl 75 mg 01/16/20 09:00 01/23/20 09:07 Effexor Xr Cap* PO 75 mg DAILY RONI Administration Vital Signs: Vital Signs Temp Pulse Resp BP Pulse Ox 97.9 F 77 16 129/87 99 01/23/20 15:21 01/23/20 15:21 01/23/20 17:24 01/23/20 15:21 01/23/20 17:24 Exam: HEENT: Suture line intact; sutures removed LUNGS: Clear bilaterally HEART: Reg rhythm ABDOMEN: Soft, +BS EXTREMITIES: Normal tone. No edema NEUROLOGIC: Alert, oriented x3. Sensation intact, still with right foot drop but improving Assessment/Plan: 1. 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 2. Right foot drop: May need AFO but improving 3. Depression: Effexor 4. DVT Prophylaxis: Given ICH, chemical prophylaxis contraindicated. TEDs 5. Advance Directives: Full Code 6. Right forehead laceration: removed sutures 7. Low Back Pain: Will add Tylenol #3 01/23/20 20:11
[2020-01-23] MEDS: Acetaminophen / Codeine* #3 (300 MG/30 MG) TAB PO PRN (22:16)
[2020-01-24] MEDS: Venlafaxine EXT RELEASE CAP* 75 MG PO SCH (08:41)
[2020-01-24] MEDS: Docusate CAP* 100 MG PO SCH ×2 (08:41→20:59)
[2020-01-24] MEDS: Pantoprazole TAB * 40 MG TAB PO SCH (08:41)
[2020-01-24] MEDS: Acetaminophen / Codeine* #3 (300 MG/30 MG) TAB PO PRN ×2 (08:44→20:59)
[2020-01-24] MEDS: Triamcinolone 0.025% OINT * 15 GM TUBE TOPICAL SCH ×2 (12:05→20:59)
--- NOTE | 2020-01-24 16:27 | PN ---
Progress Note Date of Service: 01/24/20 Note: SHIV BRIAN was visited. Therapy notes read and reviewed. He thinks the Tylenol #3 helped with his back pain and he did okay sleeping last night Current Medications: Active Medications Generic Name Dose Route Start Last Admin Trade Name Freq PRN Reason Stop Dose Admin Acetaminophen 650 mg 01/15/20 11:30 01/23/20 16:21 Tylenol Tab* PO 650 mg Q6H PRN Administration FEVER > 101 Acetaminophen/Codeine Phosphate 1 tab 01/23/20 20:05 01/24/20 08:44 Tylenol/Codeine 30 Mg Tab* PO 1 tab Q6H PRN Administration PAIN - MODERATE Docusate Sodium 100 mg 01/15/20 21:00 01/24/20 08:41 Colace Cap* PO 100 mg BID RONI Administration Pantoprazole Sodium 40 mg 01/16/20 09:00 01/24/20 08:41 Protonix Tab* PO 40 mg DAILY RONI Administration Senna 2 tab 01/15/20 11:30 Senokot 8.6 Mg Tab* PO BEDTIME PRN CONSTIPATION Triamcinolone Acetonide 1 applic 01/15/20 21:00 01/24/20 12:05 Triamcinolone 0.025% Oint * TOPICAL 1 applic BID RONI Administration Venlafaxine HCl 75 mg 01/16/20 09:00 01/24/20 08:41 Effexor Xr Cap* PO 75 mg DAILY RONI Administration Vital Signs: Vital Signs Temp Pulse Resp BP Pulse Ox 98.1 F 76 18 127/86 98 01/24/20 06:29 01/24/20 06:29 01/24/20 11:08 01/24/20 06:29 01/24/20 06:29 Exam: HEENT: Suture line intact; sutures removed LUNGS: Clear bilaterally HEART: Reg rhythm ABDOMEN: Soft, +BS EXTREMITIES: Normal tone. No edema NEUROLOGIC: Alert, oriented x3. Sensation intact, still with right foot drop but improving Assessment/Plan: 1. 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 2. Right foot drop: May need AFO but improving 3. Depression: Effexor 4. DVT Prophylaxis: Given ICH, chemical prophylaxis contraindicated. TEDs 5. Advance Directives: Full Code 6. Right forehead laceration: removed sutures 7. Low Back Pain: Tylenol #3 01/24/20 16:27
[2020-01-25 04:59] LABS: ABS Eosinophils 0.2 10^3/ul (0-0.6); ABS Lymphocytes 1.7 10^3/ul (1.0-4.8); ABS Monocytes 0.6 10^3/ul (0-0.8); ABS Neutrophils 3.2 10^3/ul (1.5-7.7); Eosinophil % 3.4 %; Hematocrit 36 % (42-52); Hemoglobin 12.2 g/dL (14.0-18.0); Lymphocyte % 29.9 %; Mean Corpuscular HGB Conc 34 g/dL (31-36); Mean Corpuscular Hemoglobin 31 pg (27-31); Mean Corpuscular Volume 93 fL (80-94); Mean Platelet Volume 7.8 fL (7.4-10.4); Platelet Count 238 10^3/uL (150-450); Red Cell Distribution Width 15 % (10-15); White Blood Count 5.7 10^3/uL (3.5-10.8)
[2020-01-25 05:15] LABS: Albumin 3.6 g/dL (3.2-5.2); Albumin/Globulin Ratio 1.2 (1-3); BUN/Creatinine Ratio 25.5 (8-20); EGFR African American 84.6 (>60); EGFR Non-African American 69.9 (>60); Globulin 2.9 g/dL (2-4); Potassium 3.9 mmol/L (3.5-5.0); Total Bilirubin 0.3 mg/dL (0.2-1.0); Total Protein 6.5 g/dL (6.4-8.9)
[2020-01-25] MEDS: Triamcinolone 0.025% OINT * 15 GM TUBE TOPICAL SCH ×2 (08:49→19:57)
[2020-01-25] MEDS: Docusate CAP* 100 MG PO SCH ×2 (08:49→19:57)
[2020-01-25] MEDS: Pantoprazole TAB * 40 MG TAB PO SCH (08:49)
[2020-01-25] MEDS: Acetaminophen / Codeine* #3 (300 MG/30 MG) TAB PO PRN ×3 (08:49→22:28)
[2020-01-25] MEDS: Venlafaxine EXT RELEASE CAP* 75 MG PO SCH (08:49)
--- NOTE | 2020-01-25 19:36 | PN ---
Progress Note Date of Service: 01/25/20 Note: SHIV BRIAN was visited. Therapy notes read and reviewed. He notes a dull headache behind his right eye which he has had since he was hospitalized but was a little worse this morning. Unclear if worse since he started Tylenol # 3. Otherwise he is doing well. Current Medications: Active Medications Generic Name Dose Route Start Last Admin Trade Name Freq PRN Reason Stop Dose Admin Acetaminophen 650 mg 01/15/20 11:30 01/23/20 16:21 Tylenol Tab* PO 650 mg Q6H PRN Administration FEVER > 101 Acetaminophen/Codeine Phosphate 1 tab 01/23/20 20:05 01/25/20 15:03 Tylenol/Codeine 30 Mg Tab* PO 1 tab Q6H PRN Administration PAIN - MODERATE Docusate Sodium 100 mg 01/15/20 21:00 01/25/20 08:49 Colace Cap* PO 100 mg BID RONI Administration Pantoprazole Sodium 40 mg 01/16/20 09:00 01/25/20 08:49 Protonix Tab* PO 40 mg DAILY RONI Administration Senna 2 tab 01/15/20 11:30 Senokot 8.6 Mg Tab* PO BEDTIME PRN CONSTIPATION Triamcinolone Acetonide 1 applic 01/15/20 21:00 01/25/20 08:49 Triamcinolone 0.025% Oint * TOPICAL 1 applic BID RONI Administration Venlafaxine HCl 75 mg 01/16/20 09:00 01/25/20 08:49 Effexor Xr Cap* PO 75 mg DAILY RONI Administration Vital Signs: Vital Signs Temp Pulse Resp BP Pulse Ox 98.2 F 70 16 132/90 96 01/25/20 16:44 01/25/20 16:44 01/25/20 17:03 01/25/20 16:44 01/25/20 16:44 Lab Results: Laboratory Results - last 24 hr 01/25/20 01/25/20 04:48 04:48 WBC 5.7 RBC 3.90 L Hgb 12.2 L Hct 36 L MCV 93 MCH 31 MCHC 34 RDW 15 Plt Count 238 MPV 7.8 Neut % (Auto) 55.5 Lymph % (Auto) 29.9 Butler % (Auto) 10.4 Eos % (Auto) 3.4 Baso % (Auto) 0.8 Absolute Neuts (auto) 3.2 Absolute Lymphs (auto) 1.7 Absolute Monos (auto) 0.6 Absolute Eos (auto) 0.2 Absolute Basos (auto) 0.0 Absolute Nucleated RBC 0.0 Nucleated RBC % 0.0 Sodium 140 Potassium 3.9 Chloride 106 Carbon Dioxide 29 Anion Gap 5 BUN 27 H Creatinine 1.06 Est GFR ( Amer) 84.6 Est GFR (Non-Af Amer) 69.9 BUN/Creatinine Ratio 25.5 H Glucose 102 H Calcium 9.0 Total Bilirubin 0.30 AST 15 ALT 12 Alkaline Phosphatase 54 Total Protein 6.5 Albumin 3.6 Globulin 2.9 Albumin/Globulin Ratio 1.2 Exam: HEENT: Suture line intact; sutures removed LUNGS: Clear bilaterally HEART: Reg rhythm ABDOMEN: Soft, +BS EXTREMITIES: Normal tone. No edema NEUROLOGIC: Alert, oriented x3. Sensation intact, still with right foot drop but improving Assessment/Plan: 1. 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 2. Right foot drop: May need AFO but improving 3. Depression: Effexor 4. DVT Prophylaxis: Given ICH, chemical prophylaxis contraindicated. TEDs 5. Advance Directives: Full Code 6. Right forehead laceration: removed sutures 7. Low Back Pain: Tylenol #3 8. Headache: Monitor. May need repeat CT scan 01/25/20 19:36
[2020-01-26] MEDS: Venlafaxine EXT RELEASE CAP* 75 MG PO SCH (09:17)
[2020-01-26] MEDS: Pantoprazole TAB * 40 MG TAB PO SCH (09:17)
[2020-01-26] MEDS: Docusate CAP* 100 MG PO SCH ×2 (09:17→21:14)
[2020-01-26] MEDS: Acetaminophen / Codeine* #3 (300 MG/30 MG) TAB PO PRN ×3 (09:18→21:14)
[2020-01-26] MEDS: Triamcinolone 0.025% OINT * 15 GM TUBE TOPICAL SCH ×2 (09:28→21:16)
--- NOTE | 2020-01-26 12:53 | PMRUTEAM ---
PMRU: Team Meeting Current Status: Physical Therapy: Current Status Current Rolling Status Independent Current Supine <-> Sit Status Independent Current Sit <-> Stand Status Supervision/Touching Current Bed <-> Chair Status Supervision/Touching Transfer/Bed Mobility Rolling Walker Recommended Devices Current Picking Up Object Not attempted Status Current Car Transfer Status Not attempted Current Ambulation Assistance Supervision/Touching Status Ambulation Assistive Device Rolling Walker Ambulation Conditions Two or More Turns Current Ambulation Distance 150' Current Wheelchair Propulsion Not Applicable Ability Status Current Stair Climbing Status Supervision/Touching Current Curb Assistance Status Supervision/Touching Curb Assistive Devices Rolling Walker Objective Comments Individual 50 minutes and 10 min concurrent this AM session. Occupational Therapy: Current Status Current Upper Body Dressing Independent Status Current Lower Body Dressing Supervision/Touching Status Current Footwear Status Setup or Clean-up Assist Current Bathing Status Supervision/Touching Current Grooming Status Independent Current Toileting Status Supervision/Touching Current Toilet Transfer Status Supervision/Touching Current Eating Status Independent Nursing: Current Status Skin Deviations [Right Laceration forehead] Skin Deviations [General] Rash Skin Deviation Description [ healing well Right forehead] Skin Deviation Description [ psoriasis flare up General] Bladder Current Status dependent Bowel Current Status dependent Nutrition Current Status 100% Medication Current Status dependent Rec Therapy: Current Status Summary of Assessment and Recreation therapy assessment is complete and pt Clinical Impression is aware of services. Pt uses his Ipad often for independent leisure and has participated in group activities. Pt is open to continued leisure visits and pet therapy. Treatment Goals Pt will engaged in leisure activities while on the unit as tolerated Treatment Plan Provide recreation therapy services and encourage involvement Social Work: Current Status Discharge Plan return home with outpatient PT and family support Potential for Family Training pt's girlfriend is his care team assistant and is involved in his care Anticipated Discharge Home Destination Discharge With outpatient therapy and family support Nutrition: Current Status Monitoring pt adm to PM[facility] 01/15 without notable nutritional concerns. Full nutrition assessement planned 01/22 for NDS protocol. Pt is accepting a regular diet well, no noted chewing or swallowing deficits. Eating 95-100% of most meals. Labs are unremarkable. No reported bowel/GI issues. Initial nutritional goals as outlined below. Speech: Current Status Assessment Patient has met cognitive-linguistic goals. Patient took reponsibility for using compensatory memory strategies to encode and recall 6 new pictures after increasing intervals up to 20 minutes. Patient provided concise, accurate teachback of previously instructed compensatory strategies for 1) encoding and recalling new information 2) cooperative word-finding strategiesof asking, hinting and repeating meaningfully, and 3) summarizing reading passages for comprehension and memory. Discharge speech-language therapy. Goals: Physical Therapy: Goals Goals to Be Accomplished in ( 21 Days) Goal: Rolling Assistance Independent Goal Supine <-> Sit Status Independent Goal Sit <-> Stand Status Independent Goal Bed <-> Chair Status Independent Transfer/Bed Mobility Rolling Walker Recommended Devices Goal: Picking Up Object Independent Goal: Car Transfer Status Setup or Clean-up Assist Goal: Ambulation Assistance Independent Ambulation Assistive Devices Rolling Walker Ambulation Distance (ft) 150 Goal: Wheelchair Propulsion Not Applicable Ability Goal: Stairs Assistance Independent Stairs Recommended Devices Two Rails Number of Stairs 12 Goal: Curb Assistance Independent Occupational Therapy: Goals Goals to be Completed in (Days 21 days ) Goal Upper Body Dressing Independent Routine Goal Lower Body Dressing Independent Routine Goal Footwear Status Independent Goal Bathing Routine (OT) Independent Goal Grooming Routine Independent Goal Toilet Hygiene and Independent Clothing Management Routine Goal Toilet Transfer Routine Independent Goal Functional Transfers for Independent ADL Goal Feeding Routine Independent Goal Light Housekeeping Tasks Partial/Moderate Nutrition: Goals Intervention Goals 1. adequate intake to support hydration and lean body mass without significant wt change 2. maintain serum electrolytes WNL 3. regulation of bowel pattern; no c/o constipation (or diarrhea) Speech: Goals Speech Goal 1 Memory Goal 1 Comments Memory Goal, Long-Term: Pt will use compensatory strategies to encode and retrieve 5/5 new items after delay of 20 minutes, Independently, for independence in mobility safety, ADLs and community access. Status: Goal Met. Memory Goal, Short-term: Pt will use compensatory strategies to encode and retrieve 5/5 new items after delay of 4 minutes, given skilled instruction, Moderate cueing, and extra time. Status: Goal Met Patient initiated descriptions and personal memories asssociated with each picture. Given mininal cueing faded to independence, patient chose appropriate increasing intervals to recall the 6 pictures. Patient requred two hints after two short intervsals, then consolidated memory and recalled 6/6 after delay up to 20 minutes. Speech Goal 2 Problem solving Speech Goal 2 Comments Problem Solving Goal: Long-Term Goal: Pt will use compensatory strategies to solve moderately complex routine problems, for transfer and mobility safety, adaptive dressing, time and money management; with 100% accuracy, Independently. Status: Goal Met. Problem Solving Goal: Short-Term: Pt will use compensatory strategies to solve simple routine problems, for transfer and mobility safety, adaptive dressing, time and money management; with 80% accuracy, given skilled instruction, Moderate cueing, and extra time. Status: Goal Met. FIELD MARKETER presented a series of a challenging, unfamiliar visual spatial puzzles, the turn-taking game Hex. Patient learned from his loses and chose winning moves for puzzles frm 3x3 to 4x4 to 5x5. Social Work: Goals Discharge Plan return home with outpatient PT and family support Potential for Family Training pt's girlfriend is his care team assistant and is involved in his care Anticipated Discharge Home Destination Discharge With outpatient therapy and family support Nursing: Goals Bladder Goal independent Bowel Goal independent Nutrition Goal continue to eat 100% of meals Medication Goal independent Care Plan: Care Plan ADL's - Improve/Maintain Start: 01/15/20 14:23 Freq: [id number]@[id number] Status: Active Target: 01/16/20 Protocol: Activity Type Activity Date Activity User E-Sign Co-Sign Detail Recorded Client Recorded Date Recorded By Document 01/25/20 15:15 [id number] 01/25/20 15:15 [id number] 01/25/20 15:15 PMRU Outcome: ADL's/ADL Transfers Orders/Interventions Occupational Therapy Evaluation & Treatment Device Yes Address Deficits Secondary To: L parietal intraparenchyma l hemorrhages Patient to receive OT 5x/wk for 60-120 Therex min/day Self Care Management Group Therapy Neuromuscular ReEducation UE/LE ADL's with Assist Yes: Independent ADL Transfers with Assist Yes: Independent Toileting: Transfers,Clothing Management Yes: ,Hygeine w/Assist Independent Light Kitchen/Laundry w/Assist Yes: Parital/ Moderate Assist Other Outcome/Goals Pt tolerates OT tx session well this date. He presents with increased balance and stability in standing during ADL routine. Progression Toward Outcome/Goals Progressing Communication-Improve/Maintain Start: 01/15/20 16:45 Freq: DAILY@0700,1900 Status: Active Target: 01/29/20 Protocol: Activity Type Activity Date Activity User E-Sign Co-Sign Detail Recorded Client Recorded Date Recorded By Document 01/26/20 07:00 [id number] 01/26/20 10:32 [id number] 01/26/20 07:00 PMRU Outcome: Communication/Cognitive Status Current Communication Outcome/Goals Makes Needs Known Effectively Progression Toward Outcomes/Goals Progressing DVT Prophylaxis- Improve/Maintain Start: 01/15/20 16:45 Freq: DAILY@[id number] Status: Active Target: 01/29/20 Protocol: Activity Type Activity Date Activity User E-Sign Co-Sign Detail Recorded Client Recorded Date Recorded By Document 01/26/20 07:00 [id number] 01/26/20 10:32 [id number] 01/26/20 07:00 PMRU Outcome: DVT Prophylaxis Current DVT Outcome/Goals Remains Free of DVT Complies with DVT Prophylaxis /Treatment Demonstrates Knowledge of DVT Prevention/ Treatment Progression Toward Outcome/Goals Progressing Discharge Planning - Improve/Maintain Start: 01/15/20 16:45 Freq: [id number] Status: Active Target: 01/29/20 Protocol: Activity Type Activity Date Activity User E-Sign Co-Sign Detail Recorded Client Recorded Date Recorded By Document 01/26/20 07:00 [id number] 01/26/20 10:32 [id number] 01/26/20 07:00 PMRU Outcome: Discharge Planning Update Patient Family No Current Discharge Planning Outcome/Goals Demonstrates Understanding of Discharge Plan Progression Toward Outcome/Goals Progressing Education-Improve/Maintain Start: 01/15/20 16:45 Freq: DAILY@699,0 Status: Active Target: 01/29/20 Protocol: Activity Type Activity Date Activity User E-Sign Co-Sign Detail Recorded Client Recorded Date Recorded By Document 01/26/20 07:00 [id number] 01/26/20 10:32 [id number] 01/26/20 07:00 PMRU Outcome: Education Current Education Outcome/Goals Demonstrate/ Verbalize Understanding of Written Discharge Instructions Demonstrates Skills Encourage Questions Progression Toward Outcome/Goals Progressing /GI-Improve/Maintain Start: 01/15/20 16:45 Freq: DAILY@[id number] Status: Complete Target: 01/29/20 Protocol: Activity Type Activity Date Activity User E-Sign Co-Sign Detail Recorded Client Recorded Date Recorded By Document 01/17/20 07:00 [id number] 01/17/20 07:35 [id number] 01/17/20 07:00 PMRU Outcome: Genitourinary/ Gastrointestinal Current Gastrointestinal Outcome/Goals Maintain/ Achieve Bowel Regularity in Accordance with Pt's Baseline Prevent Constipation Laxatives as Ordered Progression Toward Outcome/Goals Goals Met Outcome/Goals Met Remain Free of Emesis Prevent Constipation Current Genitourinary Outcome/Goals Maintain/ Achieve Urinary Continence Remain Free of Hospital- Acquired UTI Progression Toward Outcome/Goals Goals Met Outcome/Goals Met Maintain/ Achieve Adequate Urinary Output Outcome/Goals Met Comment up to BR Medication Administration Start: 01/15/20 16:45 Freq: DAILY@0700,1900 Status: Active Target: 01/29/20 Protocol: Activity Type Activity Date Activity User E-Sign Co-Sign Detail Recorded Client Recorded Date Recorded By Document 01/26/20 07:00 [id number] 01/26/20 10:32 [id number] 01/26/20 07:00 PMRU Outcome: Medication Administration Assess Patient Knowledge/Teach Med Yes Education for all Meds Current Manager System Outcome/Goals Patient Independent with Medication Administration at Home Progression Towards Outcome/Goals Progressing Is Patient Going Home on Lovenox? No Mobility- Improve/Maintain Start: 01/15/20 16:45 Freq: DAILY@[id number] Status: Active Target: 01/29/20 Protocol: Activity Type Activity Date Activity User E-Sign Co-Sign Detail Recorded Client Recorded Date Recorded By Document 01/21/20 11:08 [id number] 01/21/20 11:08 [id number] 01/21/20 11:08 PMRU Outcome: Mobility Physical Therapy Evaluation and Yes Treatment Activity OOB with Assistance Yes Device Yes Assistance Yes Patient to be seen 5x/wk for 60-120 min/ Mobility day for: Training Gait Training Balance Other Current Mobility Outcome/Goals Maintain/ Achieve Baseline Mobility Status Improve Mobility Status Demonstrates Proper Use of Assistive Devices Free from Complications of Immobility Progression Toward Outcome/Goals Progressing Bed Mobility Yes: independent Transfers Yes: independent with rolling walker. Gait x ft Yes: independent with rolling walker to 150' Up/Down Stairs Yes: independent with 1 rail up down 10 stairs Neurological- Improve/Maintain Start: 01/15/20 16:45 Freq: DAILY@0700,1900 Status: Active Target: 01/29/20 Protocol: Activity Type Activity Date Activity User E-Sign Co-Sign Detail Recorded Client Recorded Date Recorded By Document 01/26/20 07:00 [id number] 01/26/20 10:32 [id number] 01/26/20 07:00 PMRU Outcome: Neurological Weakness/Aphasia Weakness Right Side Weakness/Aphasia Comment RLE, s/p cerebral hemorrhage Current Neurological Outcome/Goals Maintain/ Achieve Baseline Neurological Status Improve Neurological Status Prevent Avoidable Neurological Decline Demonstrate Knowledge of Prevention/Tx of Neuro Disorders/ Complication Maintain/ Improve Strength/ROM Progression Toward Outcome/Goals Progressing Rec Therapy- Improve/Maintain Start: 01/15/20 16:01 Freq: DAILY@0700,1900 Status: Active Target: 01/29/20 Protocol: Activity Type Activity Date Activity User E-Sign Co-Sign Detail Recorded Client Recorded Date Recorded By Document 01/21/20 17:05 [id number] 01/21/20 17:05 [id number] 01/21/20 17:05 PMRU Outcome: Recreation Therapy Current Rec Ther Outcome/Goals Complete Rec Therapy Assessment Meet with Patient Regularly for Support Encourage Leisure Involvement Progression Toward Outcome/Goals Progressing Lack of Progression Comment Pt played a board game with staff and peers. Outcome/Goals Met Complete Rec Therapy Assessment Safety- Improve/Maintain Start: 01/15/20 10:25 Freq: DAILY@0700,1900 Status: Active Target: 01/29/20 Protocol: Activity Type Activity Date Activity User E-Sign Co-Sign Detail Recorded Client Recorded Date Recorded By Document 01/26/20 07:00 [id number] 01/26/20 10:32 [id number] 01/26/20 07:00 PMRU Outcome: Safety Current Safety Outcome/Goals Remain Free of Injury or Harm Cooperates with Safety Measures for Least Restrictive Environment Prevent Falls/ Injury Progression Toward Outcome/Goals Progressing Skin- Improve/Maintain Start: 01/15/20 16:45 Freq: DAILY@0700,1900 Status: Complete Target: 01/29/20 Protocol: Activity Type Activity Date Activity User E-Sign Co-Sign Detail Recorded Client Recorded Date Recorded By Document 01/17/20 07:00 [id number] 01/17/20 07:35 [id number] 01/17/20 07:00 PMRU Outcome: Skin Skin Risk Level No Risk Current Skin Outcome/Goals Maintain/ Improve Skin Integrity Progression Toward Outcome/Goals Goals Met Outcome/Goals Met Maintain/ Improve Wound Status - Interdisciplinary Staff Present Cleaner Window/Social Work Staff Present: Yoana Wood LMSW Nursing Staff Present: Hannah Pina, RN OT Staff Present: Deya Collins PT Staff Present: Harvinder Lawson Rec Therapy Staff Present: Merle Lindquist FIELD MARKETER Staff Present: Cricket Peterson Medicine Note: Length of Stay: 3 days Anticipated Discharge Destination: Home Tentative Discharge Date: 01/29/20 Discharged to: Home
--- NOTE | 2020-01-26 21:30 | PN ---
Progress Note Date of Service: 01/26/20 Note: SHIV BRIAN was visited. Therapy notes read and reviewed. The patient was discussed in interdisciplinary team rounds. He is moving better but still has some balance problems. Headache better Current Medications: Active Medications Generic Name Dose Route Start Last Admin Trade Name Freq PRN Reason Stop Dose Admin Acetaminophen 650 mg 01/15/20 11:30 01/23/20 16:21 Tylenol Tab* PO 650 mg Q6H PRN Administration FEVER > 101 Acetaminophen/Codeine Phosphate 1 tab 01/23/20 20:05 01/26/20 21:14 Tylenol/Codeine 30 Mg Tab* PO 1 tab Q6H PRN Administration PAIN - MODERATE Docusate Sodium 100 mg 01/15/20 21:00 01/26/20 21:14 Colace Cap* PO 100 mg BID RONI Administration Pantoprazole Sodium 40 mg 01/16/20 09:00 01/26/20 09:17 Protonix Tab* PO 40 mg DAILY RONI Administration Senna 2 tab 01/15/20 11:30 Senokot 8.6 Mg Tab* PO BEDTIME PRN CONSTIPATION Triamcinolone Acetonide 1 applic 01/15/20 21:00 01/26/20 21:16 Triamcinolone 0.025% Oint * TOPICAL 1 applic BID RONI Administration Venlafaxine HCl 75 mg 01/16/20 09:00 01/26/20 09:17 Effexor Xr Cap* PO 75 mg DAILY RONI Administration Vital Signs: Vital Signs Temp Pulse Resp BP Pulse Ox 97.7 F 73 18 127/81 98 01/26/20 16:52 01/26/20 16:52 01/26/20 21:14 01/26/20 16:52 01/26/20 18:54 Exam: HEENT: Suture line intact; sutures removed LUNGS: Clear bilaterally HEART: Reg rhythm ABDOMEN: Soft, +BS EXTREMITIES: Normal tone. No edema NEUROLOGIC: Alert, oriented x3. Sensation intact, still with right foot drop but improving Assessment/Plan: 1. 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 2. Right foot drop: May need AFO but improving 3. Depression: Effexor 4. DVT Prophylaxis: Given ICH, chemical prophylaxis contraindicated. TEDs 5. Advance Directives: Full Code 6. Right forehead laceration: removed sutures 7. Low Back Pain: Tylenol #3 8. Headache: Better. No need at present for repeat CT scan 01/26/20 21:30
[2020-01-27] MEDS: Docusate CAP* 100 MG PO SCH ×2 (09:08→21:16)
[2020-01-27] MEDS: Acetaminophen / Codeine* #3 (300 MG/30 MG) TAB PO PRN ×3 (09:08→21:16)
[2020-01-27] MEDS: Venlafaxine EXT RELEASE CAP* 75 MG PO SCH (09:08)
[2020-01-27] MEDS: Pantoprazole TAB * 40 MG TAB PO SCH (09:08)
[2020-01-27] MEDS: Triamcinolone 0.025% OINT * 15 GM TUBE TOPICAL SCH (10:40)
--- NOTE | 2020-01-27 18:31 | PN ---
Progress Note Date of Service: 01/27/20 Note: SHIV BRIAN was visited. Therapy notes read and reviewed. For discharge tomorrow. His balance is not back to normal, but he will continue on in therapy Current Medications: Active Medications Generic Name Dose Route Start Last Admin Trade Name Reneq PRN Reason Stop Dose Admin Acetaminophen 650 mg 01/15/20 11:30 01/23/20 16:21 Tylenol Tab* PO 650 mg Q6H PRN Administration FEVER > 101 Acetaminophen/Codeine Phosphate 1 tab 01/23/20 20:05 01/27/20 15:06 Tylenol/Codeine 30 Mg Tab* PO 1 tab Q6H PRN Administration PAIN - MODERATE Docusate Sodium 100 mg 01/15/20 21:00 01/27/20 09:08 Colace Cap* PO 100 mg BID RONI Administration Nf Med * 1 dose 01/27/20 21:00 Triamcinolone 0.025% TOPICAL Ointment BID RONI Pantoprazole Sodium 40 mg 01/16/20 09:00 01/27/20 09:08 Protonix Tab* PO 40 mg DAILY RONI Administration Senna 2 tab 01/15/20 11:30 Senokot 8.6 Mg Tab* PO BEDTIME PRN CONSTIPATION Venlafaxine HCl 75 mg 01/16/20 09:00 01/27/20 09:08 Effexor Xr Cap* PO 75 mg DAILY RONI Administration Vital Signs: Vital Signs Temp Pulse Resp BP Pulse Ox 97.4 F 62 18 131/91 96 01/27/20 16:34 01/27/20 16:34 01/27/20 17:41 01/27/20 16:34 01/27/20 16:34 Exam: HEENT: Suture line intact; sutures removed LUNGS: Clear bilaterally HEART: Reg rhythm ABDOMEN: Soft, +BS EXTREMITIES: Normal tone. No edema NEUROLOGIC: Alert, oriented x3. Sensation intact, still with right foot drop but improving Assessment/Plan: 1. 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 2. Right foot drop: improving 3. Depression: Effexor 4. DVT Prophylaxis: Given ICH, chemical prophylaxis contraindicated. TEDs 5. Advance Directives: Full Code 6. Right forehead laceration: removed sutures 7. Low Back Pain: Tylenol #3 8. Headache: Better. 01/27/20 18:31 01/27/20 18:32
[2020-01-27] MEDS: TRIAMCINOLONE 0.025% TOPICAL SCH (21:16)
[2020-01-28] MEDS: Acetaminophen / Codeine* #3 (300 MG/30 MG) TAB PO PRN ×2 (06:26→13:44)
[2020-01-28 06:35] VITALS: BP 126/79
[2020-01-28] MEDS: Venlafaxine EXT RELEASE CAP* 75 MG PO SCH (09:31)
[2020-01-28] MEDS: Pantoprazole TAB * 40 MG TAB PO SCH (09:31)
[2020-01-28] MEDS: Docusate CAP* 100 MG PO SCH (09:31)
[2020-01-28] MEDS: TRIAMCINOLONE 0.025% TOPICAL SCH (09:35)
--- NOTE | 2020-01-28 21:42 | DS ---
CC: Dr. Bernardo Gross * DISCHARGE SUMMARY: DATE OF ADMISSION: 01/15/20 DATE OF DISCHARGE: 01/28/20 DISCHARGE DIAGNOSES: 1. Traumatic intracerebral hemorrhage, left side. 2. Right forehead laceration. 3. Mild depression. 4. Mild traumatic brain injury. 5. Hypertension. HISTORY OF PRESENT ILLNESS AND HOSPITAL COURSE: For complete history of the events leading up to her rehab stay, please see the history and physical dictated by me on 01/15/20. While on the rehab unit, the patient remained fairly stable from medical point of view. The suture line from his right forehead laceration healed well and his sutures were able to be removed. He received 7 days of Keppra and then this was stopped. The patient did report a history of low back pain which predated his brain injury. However, he felt he was not able to exercise and stretch the way he normally would. He was started on Tylenol No. 3 for his low back pain. This was effective in alleviating it. The patient was otherwise medically stable. He was seen by both Physical and Occupational Therapy and made good gains with both the disciplines. With Physical Therapy at the time of admission the patient required mod assist to do a transfer. He was able to ambulate 70 feet with mod assist. He did have frequent loss of balance noticed. By the time of discharge, he was independent and transfers independently ambulating 500 feet. With Occupational Therapy at the time of admission, the patient required set up for upper body dressing, mod assist for lower body dressing, max assist for donning and doffing footwear, mod assist for toileting, mod assist for toilet transfers. By the time of discharge, he was independent in all of these activities. The patient's significant other came in for family training prior to discharge. He was discharged home with his significant others staying for the next 2 days on 01/28. DISCHARGE DIET: Regular. DISPOSITION: Home. CONDITION ON DISCHARGE: Stable. DISCHARGE MEDICATIONS: 1. Effexor XR 75 mg daily. 2. Tylenol with codeine 30 mg 1 tablet every 6 hours as needed for pain, not to exceed 3 per day. 3. Colace 100 mg twice daily. 4. Triamcinolone cream topically as needed for psoriasis. SERVICES AFTER DISCHARGE: The patient will have outpatient physical therapy after discharge. FOLLOWUP: Follow up with his primary care doctor, Dr. Bernardo Gross as well as with Dr. De Souza. [id number]/[facility] #: [id number] PAULA
== END 2020-01-28 14:00 | disposition home or self-care (01) | DRG 945 ==
LOC: PMRU 10:17
PROVIDERS: ADMIT Physical Medicine & Rehabilitation; ATTEND Physical Medicine & Rehabilitation
PROC: F07Z5ZZ Bed Mobility Treatment (ICD-10-PCS; principal; 2020-01-15)
PROC: F07Z9ZZ Gait Training/Functional Ambulation Treatment (ICD-10-PCS; 2020-01-15)
PROC: F07Z8ZZ Transfer Training Treatment (ICD-10-PCS; 2020-01-15)
PROC: F07Z4ZZ Wheelchair Mobility Treatment (ICD-10-PCS; 2020-01-15)
PROC: F08Z0ZZ Bathing/Showering Techniques Treatment (ICD-10-PCS; 2020-01-15)
PROC: F08Z1ZZ Dressing Techniques Treatment (ICD-10-PCS; 2020-01-15)
PROC: F08Z3ZZ Feeding/Eating Treatment (ICD-10-PCS; 2020-01-15)
PROC: F08Z2ZZ Grooming/Personal Hygiene Treatment (ICD-10-PCS; 2020-01-15)
DX: S06.359D Traumatic hemorrhage of left cerebrum with loss of consciousness of unspecified duration, subsequent encounter (principal); G81.91 Hemiplegia, unspecified affecting right dominant side; F32.9 Major depressive disorder, single episode, unspecified; F10.21 Alcohol dependence, in remission; H53.001 Unspecified amblyopia, right eye; I10 Essential (primary) hypertension; S01.111D Laceration without foreign body of right eyelid and periocular area, subsequent encounter; W20.8XXD Other cause of strike by thrown, projected or falling object, subsequent encounter; M21.371 Foot drop, right foot; R51 Headache; M51.26 Other intervertebral disc displacement, lumbar region; Z79.82 Long term (current) use of aspirin; Z79.899 Other long term (current) drug therapy; Z80.0 Family history of malignant neoplasm of digestive organs
CPT/HCPCS: 36415; 80053; 85025; 90686; 90732; A9270-GY